=== PATIENT | male | born 1960 | race Caucasian/White ===

== ENCOUNTER 2019-06-15 08:30 | Outpatient (AMBR) | payer MEDICARE, MEDICAID, SELFPAY ==
--- NOTE | 2019-06-08 09:20 | PT.OIERPT ---
PT OP Initial Eval Patient Information Visit Reasons: left knee pain Medical Diagnosis: Z47.1; Z96.652 Treatment Dx #1: Left Knee Weakness Treatment Dx #2: Left Knee Mobility Deficits Start of Care: 06/08/19 Date of Onset: 05/14/19 Initial Assessment Subjective Pt is a 58 y/o male s/p left knee TKA revision 05/14/19. Pt still has knee pain (5/10) with certain activities. Pt will like to be able to garden, walk longer, stand longer, deep squat, and performing recreational activities with minimal limitation. Pt has been some exercises at home after the surgery. Objective Left Knee AROM: -8 deg to 115 deg Left Knee MMTs Quads: 3-/5 Hs: 3-/5 Left Hip MMTs Glute Med: 3/5 Glute Max: 3/5 SLS: unable due to pain and balance deficits Assessment Pt demonstrate left knee mobility and strength deficits s/p revision TKA leading to decline function. 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 Goals 1) Increase left knee flexion AROM to 120 deg in 8 wks to be able to perform deep squat 2) Increase left knee MMTs to 4/5 in 8 wks to be able to perform stairs and steps 3) Increase left hip MMTs to 4-/5 in 8 wks to be able to perform ambulation with AD more than 1 hr 4) Decrease knee pain to 2/10 in 8 wks to be able to garden 5) Indep with HEP Treatment Plan 1) Manual Therapy 2) Therapeutic Activities 3) Therapeutic Exercises 4) Modalities (ice, heat) 5) Balance Training 6) Gait Training Frequency and Duration 2 x wk for 8 wks Certification Dates: 06/08/19 to 09/06/19 Office Procedures PT Procedures PT Date of Service: 06/08/19 OP PT Eval Mod Complex 30 minutes: Yes
--- NOTE | 2019-06-13 12:41 | PT.ODAYNRPT ---
PT Outpatient Daily Note Date of Service: June 13, 2019 OP Daily Note Visit Reasons: left knee pain Outpatient Physical Therapy Treatment Date: 06/13/19 Subjective: Pt's knee feels good. No pain just stiff this AM Objective: Please see flow chart for list of ther ex performed Assessment: increase knee flexion after SB heelslide; no pain throughout PT session Plan: Continue with PT Length of Time (minutes) of Treatment: 30 Minutes Office Procedures PT Procedures PT Date of Service: 06/13/19 Therapeutic Exercise 30 minutes: Yes PT Procedures PT Date of Service: 06/08/19 OP PT Eval Mod Complex 30 minutes: Yes
--- NOTE | 2019-06-15 10:13 | PT.ODAYNRPT ---
PT Outpatient Daily Note Date of Service: June 15, 2019 OP Daily Note Visit Reasons: left knee pain Outpatient Physical Therapy Treatment Date: 06/15/19 Subjective: Pt's knee really sore after last treatment session. Pt mention that he continues his HEP at home. Objective: Please see flow chart for list of ther ex performed Assessment: continue to improve with knee flexion AROM; difficulty with side step and monster walk since was perform at end of session and Pt is fatigue. Able to perform recumbent bike with complete full [place] Plan: Continue with PT Length of Time (minutes) of Treatment: 30 Minutes Office Procedures PT Procedures PT Date of Service: 06/13/19 Therapeutic Exercise 30 minutes: Yes PT Procedures PT Date of Service: 06/08/19 OP PT Eval Mod Complex 30 minutes: Yes PT Procedures PT Date of Service: 06/15/19 Therapeutic Exercise 30 minutes: Yes
== END 2019-06-16 23:59 | disposition home or self-care (01) ==
PROVIDERS: PCP Nurse Practitioner Family; Referring Provider Nurse Practitioner Family; Visit Provider Orthopaedic Surgery
DX: Z47.1 Aftercare following joint replacement surgery (principal); Z96.652 Presence of left artificial knee joint; M25.562 Pain in left knee; R53.1 Weakness
CPT/HCPCS: 97110; 97162

== ENCOUNTER 2019-07-03 08:00 | Outpatient (AMBR) | payer MEDICARE, MEDICAID, SELFPAY ==
--- NOTE | 2019-06-18 09:47 | PTNOTE_ITS ---
PT Outpatient Daily Note Date of Service: June 18, 2019 OP Daily Note Visit Reasons: left knee pain Outpatient Physical Therapy Treatment Date: 06/18/19 Subjective: pt he feels his knee getting better after this surgery. has not been using ice on the L knee. Objective: see flow sheet. Assessment: pt demonstrates good ROM of knee flexion during his heel slides exercise with more than 90 degrees. he continues to ambulate with antalgic gait pattern. good weight shifting with equal WB as he lifts one at a time. no comp laints during treatment as he is motivated to get strong. educated pt about ice pack. he agreed to use ice pack post ther ex. observed a lot swelling so placed ice pack on it post ther ex. Plan: continue POC per PT. Length of Time (minutes) of Treatment: 30 Minutes PARTS PERSON Service Modifier Method I: Divide the number of min of care provided by the PARTS PERSON/RICHMOND by the total min of care provided then multiply by 100. If greater than 11 percent modifier is required. Method II: Divide the total time of care provided to patient by 10 (round to the nearest whole number) and add 1 min. to set the minimum time requirement. If treatment total was 60 min., then 10% of 6 min Did PARTS PERSON provide more than 10% of the care?: Yes PT CQ modifier applied: CQ Modifier applied Office Procedures PT Procedures PT Date of Service: 06/18/19 Therapeutic Exercise 30 minutes: Yes
--- NOTE | 2019-06-25 11:36 | PT.ODAYNRPT ---
PT Outpatient Daily Note Date of Service: June 25, 2019 OP Daily Note Visit Reasons: left knee pain Outpatient Physical Therapy Treatment Date: 06/25/19 Subjective: Pt's knee is better. Pt mention that he is very sore from the weekend. Pt was finishing up on some projects and yardwork. Objective: Please see flow chart for list of ther ex performed Assessment: improving with knee flexion AROM; guarded with knee flexion stretch but was able to tolerate. Post ice help decrease soreness and pain after therapy session Plan: Continue with PT Length of Time (minutes) of Treatment: 30 Minutes Office Procedures PT Procedures PT Date of Service: 06/18/19 Therapeutic Exercise 30 minutes: Yes PT Procedures PT Date of Service: 06/25/19 Therapeutic Exercise 30 minutes: Yes
--- NOTE | 2019-06-29 09:17 | PT.ODAYNRPT ---
PT Outpatient Daily Note Date of Service: June 29, 2019 OP Daily Note Visit Reasons: left knee pain Outpatient Physical Therapy Treatment Date: 06/29/19 Subjective: Pt mention that his knee feels good. A little sore from working in his garage. Pt will see surgeon on Tuesday Objective: Left Knee Flexion AROM: 123 deg Assessment: Pt's knee flexion AROM WFL and will no longer need manual stretches. Added more resistance and strengthening exercises today with good tolerance Plan: Continue with PT Length of Time (minutes) of Treatment: 30 Minutes Office Procedures PT Procedures PT Date of Service: 06/18/19 Therapeutic Exercise 30 minutes: Yes PT Procedures PT Date of Service: 06/25/19 Therapeutic Exercise 30 minutes: Yes PT Procedures PT Date of Service: 06/29/19 Therapeutic Exercise 30 minutes: Yes
--- NOTE | 2019-07-03 09:05 | PT.ODAYNRPT ---
PT Outpatient Daily Note Date of Service: July 03, 2019 OP Daily Note Visit Reasons: left knee pain Outpatient Physical Therapy Treatment Date: 07/03/19 Subjective: Pt saw MD and satisfy with knee ROM. Pt's knee feels stiff this morning but it's related more to what he's doing in his garage Objective: Please see flow chart for list of ther ex performed Assessment: tolerate exercises with minimal pain Plan: Continue with PT Length of Time (minutes) of Treatment: 30 Minutes Office Procedures PT Procedures PT Date of Service: 07/03/19 Therapeutic Exercise 30 minutes: Yes PT Procedures PT Date of Service: 06/18/19 Therapeutic Exercise 30 minutes: Yes PT Procedures PT Date of Service: 06/25/19 Therapeutic Exercise 30 minutes: Yes PT Procedures PT Date of Service: 06/29/19 Therapeutic Exercise 30 minutes: Yes
== END 2019-07-17 23:59 | disposition home or self-care (01) ==
PROVIDERS: PCP Nurse Practitioner Family; Referring Provider Nurse Practitioner Family; Visit Provider Orthopaedic Surgery
DX: Z47.1 Aftercare following joint replacement surgery (principal); Z96.652 Presence of left artificial knee joint; M25.562 Pain in left knee; R53.1 Weakness; R26.2 Difficulty in walking, not elsewhere classified
CPT/HCPCS: 97110

== ENCOUNTER 2024-05-12 12:41 | Inpatient (IN) | payer MEDICARE, MEDICAID, SELFPAY ==
[2024-05-12 12:54] VITALS: BP 112/96; PULSE 56; RESP 16; TEMP 36.6; O2SAT 98
[2024-05-12 12:57] VITALS: BMI 29.8
--- NOTE | 2024-05-12 13:06 | PC.NURSE ---
Addendum entered by Tanna Wolfe RN 05/12/24 13:36: cardboard splint in place upon arrival to er Original Note: Patient to er via ems s/p stepping into a hole, c/o right ankle pain, patient given fentanyl 100mcg en route and patient states his pain is tolerable and has decreased to 3/10 at this time, Dr. Ramires at bedside to evaluate patient.
--- NOTE | 2024-05-12 13:11 | EDNOTE_ITS ---
Lower Extremity Injury RME/HPI General Chief Complaint: Ankle/Foot Injury Stated Complaint: right ankle injury Time Seen by Provider: 05/12/24 13:09 Arrival date/time: 05/12/24 12:41 RME / HPI RME / HPI Narrative: DR. FRAZIER MAIN ED EVALUATION: Patient was on a field watching his granddaughter play soccer and evidently stepped into a hole or depression and rolled his right ankle with a deformity. EMS was called and he was transported to our facility for further evaluation. He was put in a cardboard splint with fair amount of comfort. Patient denies any other injury to his head neck chest abdomen pelvis. His left leg has no injury or problem. The distal tib-fib and ankle are painful and swollen. He remains neurovascularly intact. Related Data Home Medications ?Medication ?Instructions ?Recorded ?Confirmed lisinopril 20 mg tablet 20 mg PO DAILY 05/09/18 05/12/24 sertraline 50 mg tablet 50 mg PO QDAY 06/20/18 05/12/24 atenolol 50 mg tablet 50 mg PO QDAY 03/18/22 05/12/24 rifaximin 550 mg tablet (Xifaxan) 550 mg PO BID 05/12/24 05/12/24 Allergies Allergy/AdvReac Type Severity Reaction Status Date / Time No Known Allergies Allergy Verified 05/12/24 17:14 Review of Systems Review of Systems Systems Reviewed: All systems reviewed, normal except as documented Narrative Review of Systems: GEN: No fever, no chills, no weight loss EYES: No discharge, no visual changes, no pain HEENT: No ear pain, no congestion, no sore throat PULM: No shortness of breath, no cough, no congestion CV: No chest pain, no dyspnea on exertion, no palpitations GI: No nausea, no vomiting, no diarrhea, no pain, no constipation : No frequency, no urgency and no dysuria MUSC/SKEL: + right ankle pain with a deformity (see HPI), no back pain SKIN: No rash PSYCH: No hallucinations, no depression HEME/LYMPH: No easy bleeding or bruising tendencies NEURO: No weakness, no headache Past Medical History Past Medical History CARDIAC: Positive Cardiac Disorders, Hypercholesterolemia and Hypertension GASTROINTESTINAL: Positive Gastrointestinal Disorders, Gall Bladder Disease and Ulcer MUSCULOSKELETAL: Positive Musculoskeletal Disorders and Arthritis ENT: Positive Cataracts PSYCHO/SOCIAL: Positive Depression and Anxiety OTHER HISTORY: Positive Chicken Pox, Measles and Mumps Family History FAMILY HISTORY: Positive Family Cardiac Disorders, Family Cancer and Family Surgery Surgical History SURGICAL: Positive Eye Surgery, Abdominal Surgery, Joint Replacement, Arthroscopy and Vasectomy Social History SMOKING STATUS: Current every day smoker SECOND HAND EXPOSURE: Yes SUBSTANCE USE: does not use ALCOHOL: Never ED Exam Narrative Physical exam: Physical Exam: General: The vital signs were reviewed. The patient is non-toxic, in no apparent distress and appears healthy with a patent airway, no respiratory distress and has no apparent circulatory problems. Head & Scalp: Normocephalic, atraumatic. Face: Appears normal and is without lesions, deformity. Ears: Left external pinna appears normal. Right external pinna appears normal. Eyes: The sclera is anicteric. No obvious photophobia. The Left and Right Orbit/Lid/Conjunctiva appears normal without swelling, discoloration or injection. Nose: The nose is without deformity, discharge or tenderness; Throat: Appears normal. The mucous membranes are pink and moist without exudates, redness or mass seen. The tongue appears normal. Neck: The neck is supple and no apparent mass or adenopathy. Chest: The chest wall is normal in size and symmetry and has no chest wall tenderness or crepitus. The patient displays normal ventilator effort without retractions, accessory muscle use and has adequate air movement bilaterally with no wheezes and no rales. Cardiovascular: Regular rate and rhythm; No murmurs, rubs, or gallops; Gastrointestinal: The abdomen appears normal. No obvious hernias or mass. The abdomen is soft and benign, non-distended, with no pain, no guarding and no rebound tenderness. Bowel sounds are present and normal sounding. No CVA tenderness. Genitourinary: Back/Spine: Nontender Extremities/Musculoskeletal/lymphatic: The right distal tib-fib has tenderness on palpation but no obvious step-off is felt in the tibia. When he approached medially although I in the ankle joint and mortise itself there appears to be much more pain with some swelling no gross deformity is seen at this time. He is neurovascularly intact. The foot has no pain or abnormality and he moves his toes without difficulty. The bilateral upper and left lower extremities are warm. There is no evidence of arterial insufficiency. There is no evidence of venous insufficiency/edema. The patient spontaneously moves bilateral upper and lower extremities with no pain and no limitation of movement. There is no apparent, injury or trauma. Skin: The skin is warm, dry and intact. No rashes. No petechia. No purpura. No a bnormal bruising. The color is appropriate with no cyanosis. Mental status/Psychiatric: Mental status is appropriate for age. The patient has no apparent delusions, visual hallucinations, no apparent audible hallucinations. The patient has no apparent suicidal thoughts/ideation and no apparent homicidal thoughts/ideation. Neurological: The patient is awake, alert, interactive, cordial, cooperative and is oriented to name and situation. The patient follows commands and answers historical question with no impairment. There is no visual disturbance apparent. The pupils are equal and reactive bilaterally with normal eye movements and no diplopia The bilateral upper and lower extremities have normal strength, normal range of motion and normal functioning. The gait, station and balance appear to be baseline with no acute change Course Quality Measures none Orders Category Date Time Status EKG (ED ONLY) *Do not use* NOW Care 05/12/24 16:03 Active Miscellaneous Nursing Order NOW Care 05/12/24 18:10 Active NPO NOW Care 05/12/24 16:03 Active Splint / Immobilizer STAT Care 05/12/24 15:40 Active Diet NPO (NOW) Diet 05/12/24 16:[address] ankle RT wo con Stat Exams 05/12/24 16:01 Completed EKG (ED Only) Stat Exams 05/12/24 16:03 Draft XR ankle comp RT min 3V Stat Exams 05/12/24 13:09 Completed XR chest 1V portable Stat Exams 05/12/24 16:03 Completed XR tibia fibula RT 2V Stat Exams 05/12/24 13:09 Completed CBC Stat Lab 05/12/24 16:47 Completed Comprehensive Metabolic Panel Stat Lab 05/12/24 16:47 Completed PT [Prothrombin Time with INR] Stat Lab 05/12/24 16:47 Completed PTT [Partial Thromboplastin Time] Stat Lab 05/12/24 16:47 Completed Urinalysis Stat Lab 05/12/24 16:03 Ordered Morphine Inj Med 05/12/24 14:41 Discontinued 5 mg IVP X1 ONE Ondansetron Inj [Zofran Inj] Med 05/12/24 14:41 Discontinued 4 mg IV X1 ONE Sodium Chloride 0.9% 1000 ml [Ns] 1,000 ml Med 05/12/24 16:03 Active IV 150 mls/hr Vital Signs Vital signs: Vital Signs Temperature 97.9 F 05/12/24 12:54 Pulse Rate 56 L 05/12/24 12:54 Respiratory Rate 16 05/12/24 12:54 Blood Pressure 112/96 H 05/12/24 12:54 Pulse Oximetry (%) 98 05/12/24 12:54 Oxygen Delivery Method Room Air 05/12/24 12:54 Procedures -ED Smoking Cessation Time Spent Discussing Smoking Cessation w/Patient (min): 3 Patient Acknowledges Need for Cessation: Yes Additional Comments: The patient was counseled as to the multiple risks to their health from continued use of tobacco products. It was explained that continuing to smoke may lead to multiple short and terminal gauger negative health consequences, including but not limited to mouth/esophageal/lung cancer, COPD, and heart disease. The patient states they understand these risks, and also understand the options and resources available to them to help them stop smoking. Nicotine replacement therapy, local hotlines, and local resources were discussed as viable options for helping them stop their tobacco use. The total time spent counseling the patient regarding tobacco cessation was 3 minutes. Extremity Injury, Lower MDM Narrative MDM Narrative:: Patient 63-year-old who appears to have rolled his right ankle with some injury and were pending x-rays at this time. The patient is neurovascularly intact. Should be noted paramedics gave the patient to 100 of fentanyl and route and he is comfortable on arrival. X-rays were done soon after arrival which revealed obvious fracture of the distal metaphyseal shaft of the tibia and the proximal fibular shaft has a nondisplaced fracture also. Ankle mortise appears to be fairly well aligned as the malleoli appear to be intact. The foot itself has no obvious pathology or injury clinically. Dr. abebe the orthopedic surgeon on-call was contacted he reviewed the x- rays with me and requested a CT of the ankle but stated that he would be consulting and would have the hospital admit preop labs were then ordered and came back in a delayed fashion as the department was quite busy and revealed the following white count 9.5 hemoglobin 15.1 platelet count is 134. PT was 12.8 INR 1.2 sodium 134 potassium 4.3 chloride 101 CO2 21.8 note the BUN is elevated 29 from baseline of normal creatinine is elevated at 1.9 baseline of normal. Etiology of this presumably ABILIO does liver transaminases are elevated along with a total bilirubin of 4.2.> Should be noted this patient has old records that reveal alcohol issues and the patient minimized that when I asked him the question but I think he is drinking more than he is admitting to The hospitalist were contacted early on informed that this patient need to be admitted and then have evaluated this patient and are working the patient up for preop clearance and obviously there is a few extra findings that were not known upfront. IShaunna, am scribing for and in the presence of Dr. Frazier. Patient data External records reviewed:: [facility] previous records (Reviewed last ED visit dated 03/23/22, discharged with the following: Chest pain) and EMS form Clinical information provided by:: patient and EMS Social determinants that could affect healthcare access:: other (specify) (current tobacco smoker) Patient has the following chronic illnesses:: Hypertension and hypercholesterolemia How is presenting disease/condition affected by chronic disease/condition?: uneffected by Evaluation data The following diagnostics were reviewed and interpreted by me:: radiology exam(s) Lab and/or radiology exams considered but not ordered:: none Interpretation Summary: See above under MDM narrative. RADIOLOGY Procedure(s): XR tibia fibula RT 2V Accession Number(s): [id number] cc: Raina Serna MD; Dinh Frazier MD; Kj Garcia MD~ Examination: Tibia-Fibula, right , 2 views Technique: Tibia-fibula AP lateral 2 views Date and time of exam: May 12, 2024 1333 hrs. Indications: Injury to the right lower leg today, lower leg pain. Findings: Acute fractures distal tibial shaft, on the AP view 7 mm offset of the main fracture fragments No ankle dislocation Acute fractures proximal fibular shaft without significant displacement Impression: Acute fractures distal tibial shaft Acute fractures proximal fibular shaft without significant displacement Dictated By: Kj Garcia MD Procedure(s): XR ankle comp RT min 3V Accession Number(s): [id number] cc: Raina Serna MD; Dinh Frazier MD; Kj Garcia MD~ Examination: Right ankle 3 views Technique one AP lateral right ankle 3 views Exam date and time: May 12, 2024 1334 hrs. Indications: Injury to the ankle today, ankle pain Findings: Comminuted fractures distal tibial shaft, on the AP view 7 mm offset at the main fracture site No ankle dislocation Impression: Acute comminuted fractures distal tibial shaft Dictated By: Kj Garcia MD Medications / Prescriptions Medications or Prescriptions considered but not ordered:: none Medication administrations:: Medication Administration History Acetaminophen (Acetaminophen 325 Mg Tablet) 650 mg PO Q6H PRN PRN Reason: PAIN SCALE 1-3 (mild Stop: 06/11/24 18:24 Hydrocodone Bitart/Acetaminophen (Hydrocodone/Apap 5/325 Tablet) 1 tab PO Q4HR PRN PRN Reason: PAIN SCALE 4-6 (Moderate Stop: 05/17/24 18:24 Folic Acid (Folic Acid 1 Mg Tablet) 1 mg PO BID [facility] Stop: 05/17/24 20:59 Hydromorphone HCl (Hydromorphone Inj 2 Mg/Ml Vial) 0.5 mg IVP Q4H PRN PRN Reason: Pain 7-10 Stop: 05/17/24 18:24 Sodium Chloride (Ns) 1,000 mls @ 150 mls/hr IV .Q6H40M ONE Stop: 05/12/24 22:42 Last Admin: 05/12/24 17:06 Dose: 150 mls/hr Documented By: DANIA Lorazepam (Lorazepam 0.5 Mg Tablet) 0.5 mg PO Q4HR PRN PRN Reason: CIWA Score 2-6 Stop: 05/17/24 18:29 Lorazepam (Lorazepam 2 Mg/Ml Vial) 1 mg IV Q2HR PRN PRN Reason: CIWA SCORE 7-14 Stop: 05/17/24 18:29 Lorazepam (Lorazepam 2 Mg/Ml Vial) 1 mg IV X1 PRN PRN Reason: Breakthrough Agitation Rifaximin (Rifaximin 550 Mg Tablet) 550 mg PO BID [facility] Stop: 05/19/24 20:59 Sertraline HCl (Sertraline Hcl 25 Mg Tablet) 50 mg PO QDAY [facility] Stop: 06/12/24 08:59 Thiamine HCl (Thiamine 100 Mg Tablet) 100 mg PO BID [facility] Stop: 05/17/24 20:59 Discontinued Medications Morphine Sulfate (Morphine Sulf Inj 10 Mg/Ml Vial) 5 mg IVP X1 ONE Stop: 05/12/24 14:42 Last Admin: 05/12/24 14:54 Dose: 5 mg Documented By: DANIA Ondansetron HCl (Ondansetron Inj 2 Mg/Ml Inj 2 Ml) 4 mg IV X1 ONE; Protocol Stop: 05/12/24 14:42 Last Admin: 05/12/24 14:53 Dose: 4 mg Documented By: DANIA see above if any Consultations Consultation(s) initiated? (list below): Yes Consultation #1 (Physician, Specialty, Details): Discussed test HPI, PMHx, lab, radiology results and/or management with Dr. Segal. Will consult an admission to the hospitalist. Wants to do the surgery tomorrow, patient will be abmitted. Time: 16:00 Consultation #2 (Physician, Specialty, Details): Discussed test HPI, PMHx, lab, radiology results and/or management with hospitalist. Will admit for further evaluation and management. Accepts patient for admission. Time: 16:06 Diagnosis Extremity Injury, Lower Differential Diagnosis: ankle sprain and strain, fracture of toe and ankle fracture Most likely diagnosis given after review of the tests above:: As noted below. Admission Indicated Admission indicated?: indicated Admission Request Was there a request for admission?: Yes Admission Attestation Admission request attestation: Discussed case with [] from Hospitalist service regarding admission. Discussed patients ED course, exam findings, labs, and radiology results. The Hospitalist [agrees,declines] to accept the patient for admission. Disposition Plan Disposition Plan: Admit Discharge Plan Plan Patient Disposition: Admit Acute Care w/in Hospital Problem List Clinical Impression: Comminuted fracture of shaft of tibia, Alcohol abuse, Closed fibular fracture, Accidental fall, Elevated transaminase level, Acute prerenal azotemia
[2024-05-12 14:50] VITALS: BP 113/69; PULSE 56; RESP 18; TEMP 36.4; O2SAT 100
[2024-05-12] MEDS: ONDANSETRON INJ 2 MG/ML INJ 2 ML 4 MG IV (14:53)
[2024-05-12] MEDS: MORPHINE SULF INJ 10 MG/ML VIAL 5 MG IVP (14:54)
--- NOTE | 2024-05-12 16:01 | XR_ITS ---
Examination: CT right ankle, without contrast. 2-D sagittal reconstructions. 2-D coronal reconstructions. 3-D reconstructions. Date and time of exam:May 12, 2024 at 1632 hrs. Indications: Injury to the lower leg today, acute fractures proximal fibular shaft and distal tibial shaft on plain films today CTDI: vol (mGy):4.69 DLP: (mGycm):1167 Technique: Multiple 1.25 mm axial sections of the right ankle have been obtained. 2-D sagittal and coronal reconstructions have been obtained. 3-D reconstructions have been obtained. Low dose protocols were performed. One or more of the following dose reduction techniques were used; automated exposure control, adjustment of the mA and/or KV according to patient size, use of iterative reconstruction technique. Findings: Fractures through the distal tibial shaft, on the coronal views 4 mm offset at the main fracture sites Sagittal image 57 demonstrates a nondisplaced posterior malleolar fracture Medial malleolus and the distal fibula appear intact No ankle dislocation Talus calcaneous cuboid cuneiforms and navicular appear intact Metatarsals and digits appear intact Impression: Acute fractures through the distal tibial shaft Nondisplaced posterior malleolar fracture No ankle dislocation
--- NOTE | 2024-05-12 16:03 | XR_ITS ---
Examination: AP chest single view Technique one AP upright portable chest single view Exam date and time: May 12, 2024 at 1608 hrs. Comparison April 01, 2018 Indications: Dyspnea today Findings: Mild prominence left ventricle Mild prominence pulmonary vasculature. No lobar pneumonia or pulmonary edema The osseous structures are intact Impression: Mild prominence of ventricle Mild prominence pulmonary vasculature No lobar pneumonia
--- NOTE | 2024-05-12 16:03 | EKG_ITS ---
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
[2024-05-12 16:58] LABS: Basophils % (Auto) 0 % (0-2.5); Eosinophils % (Auto) 0 % (0-10); Hemoglobin 15.1 g/dL (13.5-16.0); Immature Granulocytes % (Auto) 1 % (0-0); Immature Granulocytes Auto 0.08 Thou/mm3 (0.00-0.00); Lymphocytes % (Auto) 11 % (10-50); Mean Corpuscular HGB Conc 34.3 g/dl (31.0-37.0); Mean Corpuscular Volume 96 fL (80-100); Monocytes # (Auto) 0.5 Thou/mm3 (0.0-0.8); Monocytes % (Auto) 6 % (0-12); Neutrophils # (Auto) 7.8 Thou/mm3 (1.8-7.7); Neutrophils % (Auto) 82 % (37-80); Nucleated Red Blood Cell % 0 /100 WBC (0); Platelet Count 134 Thou/mm3 (140-440); RDW Standard Deviation 45.6 fL (35.1-43.9); Red Blood Count 4.58 Miln/mm3 (4.50-5.90); White Blood Count 9.5 Thou/mm3 (3.8-10.6)
--- NOTE | 2024-05-12 17:05 | PC.NURSE ---
Dr. Mcmullen at bedside evaluating patient and speaking with patient and family regarding plan of care.
[2024-05-12] MEDS: SODIUM CHLORIDE 0.9% 1000 ML 1,000 ML 150 ML IV (17:06)
[2024-05-12 17:09] VITALS: BP 93/61; PULSE 62; RESP 16; TEMP 36.3; O2SAT 94
[2024-05-12 17:13] LABS: INR 1.2 (0.9-1.3); Partial Thromboplastin Time 30.2 Seconds (22.0-36.0); Prothrombin Time 12.8 Seconds (9.0-12.2)
[2024-05-12 17:27] LABS: Alanine Aminotransferase 1265 U/L (10-49); Albumin, Serum 4.6 gm/dL (3.4-4.8); Albumin/Globulin Ratio 1.4 (1.2-2.2); Alkaline Phosphatase 197 U/L (46-116); Anion Gap 11 (7-16); Aspartate Amino Transferase 581 U/L (0-34); BUN/Creatinine Ratio 15 Ratio (12-20); Bilirubin,Total 4.2 mg/dL (0.3-1.2); Blood Urea Nitrogen 29 mg/dL (9-23); Calcium 10.2 mg/dL (8.3-10.6); Calcium (Corrected) 10.2 mg/dL (8.5-10.1); Carbon Dioxide 21.8 mMol/L (20.0-31.0); Chloride 101 mMol/L (98-107); Creatinine (Component) 1.9 mg/dL (0.6-1.3); Estimated Creatinine Clearance 47.4 mL/min (>60); Globulin 3.2 gm/dL (2.3-3.5); Glucose 108 mg/dL (74-106); Osmolality,Calculated 275 (275-295); Potassium 4.3 mMol/L (3.4-5.1); Sodium 134 mMol/L (136-145); Total Protein 7.8 gm/dL (5.7-8.2); eGFR 39 See Note
--- NOTE | 2024-05-12 18:54 | XR_ITS ---
Examination: Abdomen sonogram, Limited Date and time of exam: May 12, 2024 1925 hrs. Indications: Patient fell today with injury to the abdomen, abdominal pain, elevated liver enzymes Technique: Real-time woodward scale transabdominal sonographic images of the upper abdomen obtained. Findings: Absent gallbladder Common bile duct 0.7 cm no stones Pancreatic head 3.2 cm Liver 16.4 cm fatty infiltration irregular contour no focal liver lesions Normal hepatopedal portal venous flow Patent IVC Impression: Absent gallbladder Common bile duct 0.7 cm no stones noted Mild hepatomegaly fatty infiltration, primary hepatocellular disease pattern no focal liver lesions
--- NOTE | 2024-05-12 19:40 | PD.RESHP ---
Documentation for date of: 05/12/24 HPI History of Present Illness History of present illness: The patient is a 63-year-old male with significant past medical history of hypertension, alcoholic hepatitis and anxiety presented to ED on 05/12/2024 with chief complaint of right ankle pain after a ground-level fall. He reported that he was standing, and felt like his ground was moving, and fell down. He tried searching for any holes in the ground but there was none. He denied any lightheadedness, dizziness, SOB, chest pain, LOC, any incontinence during the episode. In the ED his vitals were fairly stable, with blood pressure of 112/96, pulse 56 and saturating 98% on room air. CBC WNL, PT 12.8, BUN 29, creatinine 1.9, total bilirubin 4.2, AST 581 and ALT 1265 with ALP 197. Rt ankle xray Acute comminuted fractures distal tibial shaft, Rt tibia/fibula x ray Acute fractures distal tibial shaft, Acute fractures proximal fibular shaft without significant displacement. CT ankle Acute fractures through the distal tibial shaft, Nondisplaced posterior malleolar fracture, No ankle dislocation. US GB Absent gallbladder, Common bile duct 0.7 cm no stones noted, Mild hepatomegaly fatty infiltration, primary hepatocellular disease pattern no focal liver lesions. PMH: As mentioned above SHX: Cholecystectomy, left knee replacement Social Hx: Smoking 1/2 pack per day for 40 years, 2-3 beers/day but denies any illicit drug use. Medications: Atenolol, lisinopril, rifaximin and sertraline Review of Systems Review of Systems Systems Reviewed: All systems reviewed, normal except as documented Exam Vital Signs Temp Pulse Resp BP Pulse Ox O2 Del Method O2 Flow Rate 97.4 F 62 16 93/61 94 L Nasal Cannula 2 05/12/24 17:09 05/12/24 17:09 05/12/24 17:09 05/12/24 17:09 05/12/24 17:09 05/12/24 17:09 05/12/24 17:09 Narrative Exam General: Elderly gentleman, no acute distress, Alert and Oriented x 3 HEENT: Moist mucous membranes, oropharynx clear Neck: Supple, No masses, No JVD CVS: S1S2 Regular rate and rhythm, No murmurs, rubs or gallops Lungs: Clear to auscultation with no accessory use, no wheeze no rhonchi Abd: Soft, NT/ND, +BS, no organomegaly Ext: Rt ankle swollen and tender. peripheral arteries palpable, Lt knee with surgical scar Skin: No rash Psych: Appropriate mood and affect Results: Labs 05/14/24 05:27 05/14/24 05:27 Labs: Short CBC 05/12/24 Range/Units 16:47 WBC 9.5 (3.8-10.6) Thou/mm3 Hgb 15.1 (13.5-16.0) g/dL Hct 44.0 (41.0-53.0) % Plt Count 134 L (140-440) Thou/mm3 BMP 05/12/24 16:47 Sodium 134 L Potassium 4.3 Chloride 101 Carbon Dioxide 21.8 BUN 29 H Creatinine 1.9 H Glucose 108 H Calcium 10.2 Liver Function 05/12/24 Range/Units 16:47 Total Bilirubin 4.2 H (0.3-1.2) mg/dL AST 581 H* (0-34) U/L ALT 1265 H* (10-49) U/L Alkaline Phosphatase 197 H (46-116) U/L Albumin 4.6 (3.4-4.8) gm/dL Quality Measures Quality Measures none Advance care planning discussed with:: patient and spouse Medications Home Medications and Allergies Home Medications ?Medication ?Instructions ?Recorded ?Confirmed ?Type lisinopril 20 mg tablet 20 mg PO DAILY 05/09/18 05/12/24 History sertraline 50 mg tablet 50 mg PO QDAY 06/20/18 05/12/24 History atenolol 50 mg tablet 50 mg PO QDAY 03/18/22 05/12/24 History rifaximin 550 mg tablet (Xifaxan) 550 mg PO BID 05/12/24 05/12/24 History Allergies Allergy/AdvReac Type Severity Reaction Status Date / Time No Known Allergies Allergy Verified 05/12/24 17:14 Visit Medications Acetaminophen (Acetaminophen 325 Mg Tablet) 650 mg PO Q6H PRN PRN Reason: PAIN SCALE 1-3 (mild Stop: 06/11/24 18:24 Hydrocodone Bitart/Acetaminophen (Hydrocodone/Apap 5/325 Tablet) 1 tab PO Q4HR PRN PRN Reason: PAIN SCALE 4-6 (Moderate Stop: 05/17/24 18:24 Folic Acid (Folic Acid 1 Mg Tablet) 1 mg PO BID PURA Stop: 05/17/24 20:59 Hydromorphone HCl (Hydromorphone Inj 2 Mg/Ml Vial) 0.5 mg IVP Q4H PRN PRN Reason: Pain 7-10 Stop: 05/17/24 18:24 Sodium Chloride (Ns) 1,000 mls @ 150 mls/hr IV .Q6H40M ONE Stop: 05/12/24 22:42 Last Admin: 05/12/24 17:06 Dose: 150 mls/hr Lorazepam (Lorazepam 0.5 Mg Tablet) 0.5 mg PO Q4HR PRN PRN Reason: CIWA Score 2-6 Stop: 05/17/24 18:29 Lorazepam (Lorazepam 2 Mg/Ml Vial) 1 mg IV Q2HR PRN PRN Reason: CIWA SCORE 7-14 Stop: 05/17/24 18:29 Lorazepam (Lorazepam 2 Mg/Ml Vial) 1 mg IV X1 PRN PRN Reason: Breakthrough Agitation Rifaximin (Rifaximin 550 Mg Tablet) 550 mg PO BID PURA Stop: 05/19/24 20:59 Sertraline HCl (Sertraline Hcl 25 Mg Tablet) 50 mg PO QDAY PURA Stop: 06/12/24 08:59 Thiamine HCl (Thiamine 100 Mg Tablet) 100 mg PO BID PURA Stop: 05/17/24 20:59 Discontinued Medications Morphine Sulfate (Morphine Sulf Inj 10 Mg/Ml Vial) 5 mg IVP X1 ONE Stop: 05/12/24 14:42 Last Admin: 05/12/24 14:54 Dose: 5 mg Ondansetron HCl (Ondansetron Inj 2 Mg/Ml Inj 2 Ml) 4 mg IV X1 ONE; Protocol Stop: 05/12/24 14:42 Last Admin: 05/12/24 14:53 Dose: 4 mg Assessment & Plan Plan The patient is a 63-year-old male with significant past medical history of hypertension, alcoholic hepatitis and anxiety presented to ED on 05/12/2024 with chief complaint of right ankle pain after a ground-level fall. He reported that he was standing, and felt like his ground was moving, and fell down and was admitted for management of Lt acute fracture of distal tibial shaft and posterior malleolar fracture. #Acute Fracture of distal tibial shaft #Non displaced Posterior malleolar fracture #Ground level fall Pt. complaint of right ankle pain after a ground-level fall. He reported that he was standing, and felt like his ground was moving, and fell down. He tried searching for any holes in the ground but there was none. He denied any lightheadedness, dizziness, SOB, chest pain, LOC, any incontinence during the episode. Rt ankle xray Acute comminuted fractures distal tibial shaft, Rt tibia/fibula x ray Acute fractures distal tibial shaft, Acute fractures proximal fibular shaft without significant displacement. CT ankle Acute fractures through the distal tibial shaft, Nondisplaced posterior malleolar fracture, No ankle dislocation -Pain management -Dr. Parks on board, appreciate reccs -NPO after midnight -Hold anticoagulations #Alcohol abuse disorder #Alcoholic hepatitis Drinks 2-3 beers/day, has previous labs with elevated liver enzymes and bilirubin total bilirubin 4.2, AST 581 and ALT 1265 with ALP 197 during presentation US GB Absent gallbladder, Common bile duct 0.7 cm no stones noted, Mild hepatomegaly fatty infiltration, primary hepatocellular disease pattern no focal liver lesions. -On CIWA protocol -Pending Hepatic panel -Monitor closely -Rifaximine 550mg BID -Dr. Mares consulted, appreciate reccs #Hypercalcemia #ABILIO Likely prerenal DDx: Intrarenal vs postrenal Cr 1.9, previous on 2021 was 1.1 -Maintainance IV NS 150cc/h for 1 L -Monitor daily renal panel -Avoid nephrotoxins #Hypoosmolar hypovolemic hyponatremia -On IV NS 150cc/Hr -Monitor renal panel #Hypertension Currently BP stable -Hold off on home antihypertensive for now, resume as needed #Anxiety -Started home sertraline 50mg daily Health maintenance: Dispo: Admitted for management of Lt acute fracture of distal tibial shaft and posterior malleolar fracture DVT prophylaxis: On Lt LL SCD's Diet: Cardiac diet, NPO after midnight CODE: Full code The plan was discussed with my attending MD Valeriy Ann MD PGY2 Attending Provider Attestation/Addendum I attest that I was physically present for the evaluation, physical examination, lab and imaging review of the patient with the residents. I discussed the case with the residents and agree with the findings and plans of care as documented above. Carri Nair MD
[2024-05-12] MEDS: HYDROmorphone INJ 2 MG/ML VIAL 0.5 MG IVP (20:00)
--- NOTE | 2024-05-12 20:07 | PD.EDADDENDU ---
Emergency Room Addendum Addendum Narrative: Patient had a long leg 3 sided posterior splint placed on his right leg administered by our 1 and only Vernon Mota and patient was much more comfortable and neurovascularly intact.
[2024-05-12] MEDS: THIAMINE 100 MG TABLET PO (20:23)
[2024-05-12] MEDS: FOLIC ACID 1 MG TABLET PO (20:24)
[2024-05-12] MEDS: rifaximin 550 MG TABLET PO (20:24)
[2024-05-12 20:58] VITALS: PULSE 62; RESP 18; O2SAT 93
--- NOTE | 2024-05-12 21:00 | PC.NURSE ---
Dr. Parks [facility] called to ask about labs. Ordered NPO after midnight, no antiplatellets or blood thinners. Surgery at 0900
--- NOTE | 2024-05-12 21:03 | PC.NURSE ---
Spoke to Dr Mcmullen and communicated BP of 97/68 while she was in ER unit. States she will place orders when she gets to her desk.
[2024-05-12 21:53] LABS: Alcohol, Blood Medical < 3.0 mg/dL (0-10.0)
--- NOTE | 2024-05-12 22:09 | PC.NURSE ---
Called admitting provider for 84/44 BP. They will make their way to ED
[2024-05-12] MEDS: RINGERS LACTATED 500 ML 500 ML 999 ML IV (22:23)
[2024-05-12 22:37] VITALS: BP 84/44; PULSE 60; RESP 20; O2SAT 92
[2024-05-12 23:02] VITALS: BP 91/61; PULSE 56; RESP 18; O2SAT 93
[2024-05-13] VITALS (15 sets, daily range): BP systolic 92–141; BP diastolic 55–97; PULSE 50–125; RESP 15–20; TEMP 35.7–37.1; O2SAT 92–98; BMI 29.8
[2024-05-13] MEDS: HYDROmorphone INJ 2 MG/ML VIAL 0.5 MG IVP ×3 (01:05→20:34)
[2024-05-13 01:20] LABS: Collection Type, Urine Catheter; Squamous Epithelial Cell,Urine 0 /hpf (0-5)
[2024-05-13 01:38] LABS: Bilirubin,Urine Negative (Negative); Blood,Urine Negative (Negative); Clarity,Urine Clear (Clear/Hazy); Color,Urine Yellow (Lt Yel-Yel); Glucose, Urine 3+ (Negative); Ketones,Urine Negative (Negative); Leukocyte Esterase,Urine Negative (Negative); Nitrite,Urine Negative (Negative); PH,Urine 5.5 (5.0-7.0); Protein,Urine Negative (Neg - Trace); RBC,Urine < 1 /hpf (0-3); Specific Gravity,Urine 1.011 (1.001-1.035); WBC,Urine 2 /hpf (0-5)
[2024-05-13 06:38] LABS: Basophils % (Auto) 1 % (0-2.5); Eosinophils # (Auto) 0.1 Thou/mm3 (0.0-0.5); Eosinophils % (Auto) 2 % (0-10); Hematocrit 41.5 % (41.0-53.0); Hemoglobin 13.9 g/dL (13.5-16.0); Immature Granulocytes % (Auto) 1 % (0-0); Immature Granulocytes Auto 0.06 Thou/mm3 (0.00-0.00); Lymphocytes # (Auto) 0.8 Thou/mm3 (1.0-4.8); Lymphocytes % (Auto) 15 % (10-50); Mean Corpuscular HGB Conc 33.5 g/dl (31.0-37.0); Mean Corpuscular Hemoglobin 32.9 pg (25.0-35.0); Mean Corpuscular Volume 98 fL (80-100); Monocytes # (Auto) 0.4 Thou/mm3 (0.0-0.8); Monocytes % (Auto) 8 % (0-12); Neutrophils # (Auto) 4.1 Thou/mm3 (1.8-7.7); Neutrophils % (Auto) 75 % (37-80); Nucleated Red Blood Cell % 0 /100 WBC (0); Platelet Count 99 Thou/mm3 (140-440); RDW Standard Deviation 46.7 fL (35.1-43.9); Red Blood Count 4.23 Miln/mm3 (4.50-5.90); White Blood Count 5.4 Thou/mm3 (3.8-10.6)
[2024-05-13 06:58] LABS: Glucose Estimated Average 103 mg/dL (80-131); Hemoglobin A1C 5.2 % Hgb (4.8-6.0)
[2024-05-13 07:41] LABS: Acetaminophen 2.7 mcg/mL (10.0-20.0); Albumin, Serum 4.3 gm/dL (3.4-4.8); Albumin/Globulin Ratio 1.5 (1.2-2.2); Alkaline Phosphatase 186 U/L (46-116); Anion Gap 6 (7-16); Aspartate Amino Transferase 510 U/L (0-34); BUN/Creatinine Ratio 15 Ratio (12-20); Bilirubin,Total 6.5 mg/dL (0.3-1.2); Blood Urea Nitrogen 26 mg/dL (9-23); Calcium 9.8 mg/dL (8.3-10.6); Calcium (Corrected) 9.8 mg/dL (8.5-10.1); Carbon Dioxide 23.9 mMol/L (20.0-31.0); Cardiac Risk Estimate 10.2 RATIO (4.0-6.7); Chloride 103 mMol/L (98-107); Cholesterol 143 mg/dL (132-200); Creatinine (Component) 1.7 mg/dL (0.6-1.3); Globulin 2.9 gm/dL (2.3-3.5); Glucose 105 mg/dL (74-106); HDL Cholesterol 14 mg/dL (40-60); LDL Cholesterol,Calculated 75 mg/dL (0-130); Osmolality,Calculated 271 (275-295); Phosphorous 2.7 mg/dL (2.4-5.1); Potassium 4.4 mMol/L (3.4-5.1); Sodium 133 mMol/L (136-145); Total Protein 7.2 gm/dL (5.7-8.2); Triglycerides 271 mg/dL (30-150); eGFR 44 See Note
[2024-05-13] MEDS: SERTRALINE HCL 25 MG TABLET 50 MG PO (07:57)
[2024-05-13] MEDS: rifaximin 550 MG TABLET PO ×2 (07:57→20:28)
[2024-05-13] MEDS: THIAMINE 100 MG TABLET PO ×2 (07:57→20:28)
[2024-05-13] MEDS: FOLIC ACID 1 MG TABLET PO ×2 (07:58→20:28)
[2024-05-13 08:17] LABS: Alanine Aminotransferase 1103 U/L (10-49)
--- NOTE | 2024-05-13 08:39 | XR_ITS ---
Examination: Right tibia-fibula 3 views Fluoroscopy Exam date and time: May 13, 2024 at 11:33 AM Indications: Acute fractures tibial shaft May 12, 2024, operative reduction internal fixation fractures today Technique And Findings: Operative reduction internal fixation fractures distal tibial shaft Anatomic alignment Orthopedic hardware satisfactory position Fluoroscopy 78 seconds radiation dose 2.95 milligray Impression: Operative reduction internal fixation fractures tibial shaft with anatomic alignment
--- NOTE | 2024-05-13 10:38 | PC.SS ---
Update: SS attempted to see patient this morning, but patient was in procedure. SS will follow up with patient on initial assessment.
--- NOTE | 2024-05-13 11:20 | SUR.PHASEI ---
1120: Pt. AAOx4, vitals stable, breathing unlabored, no complaint of pain or nausea, dressing to right leg CDI, no active bleed noted, cap refill to bilateral feet less than 3 seconds, pt. able to wiggle bilateral legs, report received from MD Truong and Randall HART.
--- NOTE | 2024-05-13 11:20 | XR_ITS ---
EXAMINATION: Ankle, right 3 views . Technique: Ankle AP, oblique, lateral 3 views Date and time of exam: May 13, 2024 1113 hrs. Indications: Postop reduction internal fixation fractures distal tibia today Findings: Operative reduction internal fixation fractures mid to distal tibial shaft Anatomic alignment Orthopedic hardware satisfactory position No active dislocation Impression: Operative reduction internal fixation fractures distal tibial shaft with anatomic alignment
--- NOTE | 2024-05-13 11:28 | ESOP_ITS ---
Date of Procedure 05/13/24 Pre Op Diagnosis Comminuted intra-articular fracture of the right distal and shaft of tibia Post Op Diagnosis Same Procedure Open reduction internal fixation with distal medial tibial plate. Size 14 healed plate Placement of 2 cannulated screw from anterior to posterior distal tibia Findings Patient had along a spiral fracture is starting from the midshaft going distally. Fracture involves the articular surface. The fracture was displaced in the midshaft area Procedure Description Patient was given general endotracheal anesthesia. Once satisfactory anesthesia achieved a tourniquet was placed on right upper thigh. Following that part was thoroughly prepped and draped. The fracture was checked under C arm in both AP and lateral projection. Following that the skin incision was made from the tip of medial malleolus extending proximally up likely towards the tibial crest and then extended further proximally. The length of the incision was about 10 inches or so. Deeper dissection was carried out. The saphenous vein and the nerve was protected all along. The fracture fragment was exposed. Wound was irrigated with antibiotic solution. Following that the fracture was reduced and checked under C arm and found to be anatomical Following that distal medial tibial plate was mounted and the bone clamp was used. Was satisfactory position was achieved and 2 cortical screws were placed proximally. Beside that 2 cortical screws were placed distally as well. Following that 1 lag screw was placed through the fracture site. The lack technique was used to put the screws. Following that 2 cannulated screws were placed at the distal end from the anterior aspect to posterior aspect and position was checked under C arm and found to be good. Following that for interlocking screw was placed distally and 3 interlocking screws were placed proximally. Interlocking technique was used. Wound was irrigated with antibiotic solution every 4 to 5 minutes Soft tissue was then closed with the above 2-0 Vicryl in an interrupted fashion. The skin was closed with a nelson To cleaning the wound with hydrogen peroxide solution a sterile dressing was applied. Short leg splint was applied and tourniquet pressure was released Patient tolerated procedure well. Estimated blood loss 25 mL. Prognosis in this case is good Anesthesia GETA and other Pathology / specimen None Estimated Blood Loss 25 Surgeon Velasquez Segal MD Surgical Staff Operation Date: 05/13/24 09:00 Case Staff Anesthesiologist: Geremias Trunog RNretail equipment associate: Suyapa Diane
--- NOTE | 2024-05-13 12:00 | SUR.PHASEI ---
1200: pt. AAOx4, vitals stable, breathing unlabored, no complaint of pain or nausea, dressing to right leg CDI, no active bleed noted, bilateral popliteal pulses strong and regular, cap refill to bilateral feet less than 3 seconds, pt. tolerated bites of ice chips well, gave report to Gerri HART prior to transfer to room 350, Family made aware of transfer to room.
--- NOTE | 2024-05-13 12:49 | PC.SS ---
Patient is alert/oriented. He resides with daughter, Ayla, who is at bedside. Patient states he's independent with ADL's. He just had surgery this morning for right ankle fracture. Daughter states she already got patient a wheelchair but she thinks he may need a walker for home. Patient's daughter provides transportation assistance for patient. PCP: Dr. Serna @ [facility] on [address]. Last appt. was in January. D/c plan: home with family. Daughter, Ayla, remains alt medical decision maker.
--- NOTE | 2024-05-13 12:55 | ESCONSULT_ITS ---
RE: VENESSA JOSHUA : 1960 DATE OF CONSULTATION: 05/13/2024 Thank you, Dr. Mcmullen for asking me to consult on the patient whom I saw early in the morning on 05/13/2024. HISTORY OF PRESENT ILLNESS: As per history available, the patient fell down at home on 05/12/2024. After that he was unable to walk. The patient sustained fracture of the right distal tibia and ankle. The patient was brought to the emergency room and x-ray was obtained. CT scan was also obtained, which was reviewed by me. PAST MEDICAL HISTORY: The patient has a history of high blood pressure. Beside that the patient has a history of alcoholic hepatitis and anxiety. PAST SURGICAL HISTORY: The patient underwent left total knee replacement in the past. DRUG HISTORY: 1. Atenolol. 2. Lisinopril. 3. Rifaximin. 4. Sertraline. ALLERGIES: NIL KNOWN. FAMILY HISTORY AND SOCIAL HISTORY: Noncontributory in this case. PHYSICAL EXAMINATION: GENERAL: Fully alert and oriented person. VITAL SIGNS: Pulse 82 per minute, repeat pulse 68 per minute. Blood pressure is 100/76. NECK: Soft, supple. No masses felt. Trachea is centrally replaced. CARDIOVASCULAR SYSTEM: First and second heart sounds are normal. No murmur heard. RESPIRATORY SYSTEM: Bilateral vesicular breath sounds. CHEST: Clear. ABDOMEN: Soft. No masses felt. Bowel sounds present. EXTREMITIES: Right lower limb examination reveals swelling, 1+ and 2+ tenderness. Neurovascularly it is intact. DIAGNOSTIC DATA: X-ray revealed comminuted fracture at the shaft area, which is extending distally up to the intraarticular region. Fracture line is going through the intraarticular region, which was also confirmed by CT scan of the ankle. It also revealed a fracture of the posterior malleolus. The lab work was checked. The patient's platelet was 132. ASSESSMENT AND PLAN: The patient was explained the diagnosis and prognosis. I explained that plate and screws will be put on. Detailed discussion took place. Risks with anesthesia was explained and that includes, but not limited to reaction to anesthetic agents, cardiac arrest, rarely it might be fatal. Risks with operations include infection and if that happens, the patient may need further surgical procedure. Other risks include delayed healing, wound assessment, etc. No guarantees were given regarding the outcome of the procedure and/or healing process. Indeed, the patients who consume a lot of alcohol delayed union and nonunion may take place. After discussing at length, the patient wanted to proceed with surgery. No guarantees were given regarding healing process. Surgery book for 05/13/2024. DT: 11:37:27 TT: 12:54:00 Ref: [id number] - TID: [id number]
--- NOTE | 2024-05-13 13:55 | ESPR_ITS ---
Documentation for date of: 05/13/24 Subjective Subjective Interval history: Patient was examined bedside this morning, he underwent open reduction internal fixation with distal medial tibial plate. Pending hepatitis panel and Dr. Mares's recommendations, AST ALT trending down. Exam Vital Signs Temp Pulse Resp BP Pulse Ox O2 Del Method O2 Flow Rate 97.9 F 94 17 109/77 94 L Nasal Cannula 2 05/13/24 13:33 05/13/24 13:33 05/13/24 13:33 05/13/24 13:33 05/13/24 13:33 05/13/24 13:05/13/24 13:33 Narrative Exam GENERAL: Comfortable adult seen resting comfortably in hospital bed, no acute distress VITALS: All vitals were reviewed and the pulse ox is 98% on room air HEENT: Normocephalic, atraumatic. Pupils are equal and reactive. Oral mucosa is moist. NECK: Supple, nontender, no JVD CHEST: Symmetrical, atraumatic and with equal expansion ,Nontender on palpation CARDIOVASCULAR: Heart regular rhythm & rate. S1/S2. no murmur or gallop rub or extra beats. LUNGS: Clear to auscultation bilaterally with symmetrical chest rise. No laboring tachypnea or wheezing. No intercostal subcostal retraction. No rales and no rhonchi. ABDOMEN: Soft, flat, nontender to palpation, no guarding or rebound tenderness. Active and normal bowel sounds. EXTREMITIES:Moves all 4 extremities,left leg wrapped . SKIN: Warm and dry, no jaundice or rashes noted. NEURO: Patient is AO x 3, Cranial nerves II through XII grossly intact. There is no focal neurologic deficits noted. PSYCHIATRIC: Patient is in normal mood, cooperative, no SI or HI or hallucinations. Objective Labs 05/14/24 05:27 05/14/24 05:27 Labs: Laboratory Results - last 24 hr 05/12/24 05/12/24 05/13/24 16:47 20:57 01:00 WBC 9.5 RBC 4.58 Hgb 15.1 Hct 44.0 MCV 96 MCH 33.0 MCHC 34.3 RDW Std Deviation 45.6 H Plt Count 134 L Neut % (Auto) 82 H Lymph % (Auto) 11 [place] % (Auto) 6 Eos % (Auto) 0 Baso % (Auto) 0 Neut # (Auto) 7.8 H Lymph # (Auto) 1.0 [place] # (Auto) 0.5 Eos # (Auto) 0.0 Baso # (Auto) 0.0 Immature Gran # (Auto) 0.08 H Absolute Nucleated RBC 0.00 Immature Gran % 1 H Nucleated RBC % 0 PT 12.8 H INR 1.2 APTT 30.2 Sodium 134 L Potassium 4.3 Chloride 101 Carbon Dioxide 21.8 Anion Gap 11 BUN 29 H Creatinine 1.9 H Estim Creat Clear Calc 47.4 L eGFR 39 L BUN/Creatinine Ratio 15 [address]ucose [address] Glu mg/dL Hemoglobin A1c Calculated Osmolality 275 Calcium 10.2 Corrected Calcium 10.2 H Phosphorus Magnesium Total Bilirubin 4.2 H AST 581 H* ALT 1265 H* Alkaline Phosphatase 197 H Total Protein 7.8 Albumin 4.6 Globulin 3.2 Albumin/Globulin Ratio 1.4 Triglycerides Cholesterol LDL Cholesterol, Calc HDL Cholesterol Cholesterol/HDL Ratio TSH Ur Collection Type Catheter Urine Color Yellow Urine Clarity Clear Urine pH 5.5 Ur Specific [place] 1.011 Urine Protein Negative Urine Glucose (UA) 3+ A Urine Ketones Negative Urine Blood Negative Urine Nitrite Negative Urine Bilirubin Negative Urine Urobilinogen (Auto) 3.0 Ur Leukocyte Esterase Negative Urine RBC < 1 Urine WBC 2 Ur Squamous Epith Cells 0 Urine Bacteria None Acetaminophen Ethyl Alcohol < 3.0 05/13/24 06:00 WBC 5.4 D RBC 4.23 L Hgb 13.9 Hct 41.5 MCV 98 MCH 32.9 MCHC 33.5 RDW Std Deviation 46.7 H Plt Count 99 L D Neut % (Auto) 75 Lymph % (Auto) 15 [place] % (Auto) 8 Eos % (Auto) 2 Baso % (Auto) 1 Neut # (Auto) 4.1 Lymph # (Auto) 0.8 L [place] # (Auto) 0.4 Eos # (Auto) 0.1 Baso # (Auto) 0.0 Immature Gran # (Auto) 0.06 H Absolute Nucleated RBC 0.00 Immature Gran % 1 H Nucleated RBC % 0 PT INR APTT Sodium 133 L Potassium 4.4 Chloride 103 Carbon Dioxide 23.9 Anion Gap 6 L BUN 26 H Creatinine 1.7 H Estim Creat Clear Calc 53.0 L eGFR 44 L BUN/Creatinine Ratio [address] Glu mg/dL 103 Hemoglobin A1c 5.2 Calculated Osmolality 271 L Calcium 9.8 Corrected Calcium 9.8 Phosphorus 2.7 Magnesium 2.0 Total Bilirubin 6.5 H D AST 510 H* ALT 1103 H* Alkaline Phosphatase 186 H Total Protein 7.2 Albumin 4.3 Globulin 2.9 Albumin/Globulin Ratio 1.5 Triglycerides 271 H Cholesterol 143 LDL Cholesterol, Calc 75 HDL Cholesterol 14 L Cholesterol/HDL Ratio 10.2 H TSH 2.80 Ur Collection Type Urine Color Urine Clarity Urine pH Ur Specific [place] Urine Protein Urine Glucose (UA) Urine Ketones Urine Blood Urine Nitrite Urine Bilirubin Urine Urobilinogen (Auto) Ur Leukocyte Esterase Urine RBC Urine WBC Ur Squamous Epith Cells Urine Bacteria Acetaminophen 2.7 L Ethyl Alcohol Quality Measures Quality Measures none Advance care planning discussed with:: patient Assessment & Plan Assessment Current Active Medications: Generic Name Dose Route Start Last Admin Trade Name Freq PRN Reason Stop Dose Admin Acetaminophen 650 mg 05/12/24 18:25 Acetaminophen 325 Mg Tablet PO 06/11/24 18:24 Q6H PRN PAIN SCALE 1-3 (mild Hydrocodone Bitart/Acetaminophen 1 tab 05/12/24 18:25 Hydrocodone/Apap 5/325 Tablet PO 05/17/24 18:24 Q4HR PRN PAIN SCALE 4-6 (Moderate Folic Acid 1 mg 05/12/24 21:00 05/13/24 07:58 Folic Acid 1 Mg Tablet PO 05/17/24 20:59 1 mg BID PURA Administration Hydromorphone HCl 0.5 mg 05/12/24 18:25 05/13/24 05:15 Hydromorphone Inj 2 Mg/Ml Vial IVP 05/17/24 18:24 0.5 mg Q4H PRN Administration Pain 7-10 Cefazolin Sodium/Dextrose 1 gm in 50 mls @ 50 mls/hr 05/13/24 17:30 Ancef Ivpb IV 05/14/24 02:29 Q8H PURA Lorazepam 0.5 mg 05/12/24 18:30 Lorazepam 0.5 Mg Tablet PO 05/17/24 18:29 Q4HR PRN CIWA Score 2-6 Lorazepam 1 mg 05/12/24 18:30 Lorazepam 2 Mg/Ml Vial IV X1 PRN Breakthrough Agitation Lorazepam 1 mg 05/13/24 09:34 Lorazepam 2 Mg/Ml Vial IV 05/17/24 18:29 Q2HR PRN CIWA SCORE 7-14 Rifaximin 550 mg 05/12/24 21:00 05/13/24 07:57 Rifaximin 550 Mg Tablet PO 05/19/24 20:59 550 mg BID PURA Administration Sertraline HCl 50 mg 05/13/24 09:00 05/13/24 07:57 Sertraline Hcl 25 Mg Tablet PO 06/12/24 08:59 50 mg QDAY PURA Administration Thiamine HCl 100 mg 05/12/24 21:00 05/13/24 07:57 Thiamine 100 Mg Tablet PO 05/17/24 20:59 100 mg BID PURA Administration Plan The patient is a 63-year-old male with significant past medical history of hypertension, alcoholic hepatitis and anxiety presented to ED on 05/12/2024 with chief complaint of right ankle pain after a ground-level fall. He reported that he was standing, and felt like his ground was moving, and fell down and was admitted for management of Lt acute fracture of distal tibial shaft and posterior malleolar fracture. #Acute Fracture of distal tibial shaft s/pdistal medial tibial plate. #Non displaced Posterior malleolar fracture s/p open reduction internal fixation #Ground level fall Pt. complaint of right ankle pain after a ground-level fall. He reported that he was standing, and felt like his ground was moving, and fell down. He tried searching for any holes in the ground but there was none. He denied any lightheadedness, dizziness, SOB, chest pain, LOC, any incontinence during the episode. Rt ankle xray Acute comminuted fractures distal tibial shaft, Rt tibia/fibula x ray Acute fractures distal tibial shaft, Acute fractures proximal fibular shaft without significant displacement. CT ankle Acute fractures through the distal tibial shaft, Nondisplaced posterior malleolar fracture, No ankle dislocation -Pain management -Dr. Parks on board, appreciate [facility] - #Alcohol abuse disorder #Alcoholic hepatitis #transaminitis - trending down Drinks 2-3 beers/day, has previous labs with elevated liver enzymes and bilirubin total bilirubin 4.2, AST 581 and ALT 1265 with ALP 197 during presentation US GB Absent gallbladder, Common bile duct 0.7 cm no stones noted, Mild hepatomegaly fatty infiltration, primary hepatocellular disease pattern no focal liver lesions. -On [facility] protocol -Pending Hepatic panel -Monitor closely -Rifaximine 550mg BID -maddery score of 7.9 , so he does not need steroid -Dr. Mares consulted, appreciate reccs #Hypercalcemia- resolved #ABILIO- improving Likely prerenal DDx: Intrarenal vs postrenal Cr 1.9, previous on 2021 was 1.1, today- 1.7 -Maintainance IV NS 150cc/h for 1 L, discontinued -Monitor daily renal panel -Avoid nephrotoxins #Hypoosmolar hypovolemic hyponatremia -On IV NS 150cc/Hr(discontinue ) -Monitor renal panel #Hypertension Currently BP stable -Hold off on home antihypertensive for now, resume as needed #Anxiety -Started home sertraline 50mg daily Health maintenance: Dispo: Admitted for management of Lt acute fracture of distal tibial shaft and posterior malleolar fracture DVT prophylaxis: On Lt LL SCD's Diet: cardiac diet CODE: Full code The plan was discussed with my attending Dr Petersen, Ellie Hylton MD, PGY-3 Attending Provider Attestation/Addendum I reviewed labs, imaging, EKG, home medications and prior available records. Face to face evaluation was performed by me. I have personally examined the patient and discussed assessment and plan with the IM team. I reviewed the resident note and agree with the plan with exceptions as below. Right ankle fracture This tibial fracture Transaminitis ABILIO Alcohol abuse Alcohol hepatitis Thrombocytopenia Plan for open reduction and internal fixation today Management of pain as needed Trend LFTs: Downtrending Monitor kidney function: Creatinine improved Maddrey score is 7.9. Not a candidate for corticosteroid. Counseled the patient regarding importance of alcohol cessation Monitor platelet level. No signs of bleeding.
[2024-05-13] MEDS: ceFAZolin/D5W 1 GM IVPB 1 GM/50 ML BAG IV (16:36)
--- NOTE | 2024-05-13 17:15 | SUR.OPER ---
Implants: 3.5 Cortex LP x 1 2.7 Locking x1
--- NOTE | 2024-05-13 18:25 | ESCONSULT_ITS ---
HPI Data of Consult Requesting Physician: Carri Nair MD Primary Care Provider: Raina Serna MD Consult Narrative Reason for consult: Abnormal LFTs History of present illness: 63 years old male I been consulted for abnormal liver function test he fell down and has a fracture of the distal tibia with the ankle fracture requiring ORIF He was found to have a total bilirubin of 4.2 AST ALT 581 and 1265 and alk phos of 197 on admission He does drink 2-3 beers per day His hepatitis A, B, and C serologies in the past have been negative Liver ultrasound done showed hepatomegaly fatty liver and absent gallbladder cc:: cc: Carri Nair MD Review of Systems Review of Systems Systems Reviewed: All systems reviewed, normal except as documented Past Medical History Surgical History OTHER SURGICAL HX: Alcoholic liver disease Essential hypertension Anxiety neurosis Meds Home Medications and Allergies Home Medications ?Medication ?Instructions ?Recorded ?Confirmed ?Type lisinopril 20 mg tablet 20 mg PO DAILY 05/09/18 05/12/24 History sertraline 50 mg tablet 50 mg PO QDAY 06/20/18 05/12/24 History atenolol 50 mg tablet 50 mg PO QDAY 03/18/22 05/12/24 History rifaximin 550 mg tablet (Xifaxan) 550 mg PO BID 05/12/24 05/12/24 History Allergies Allergy/AdvReac Type Severity Reaction Status Date / Time No Known Allergies Allergy Verified 05/12/24 17:14 Exam Vital Signs Temp Pulse Resp BP Pulse Ox O2 Del Method O2 Flow Rate 98.7 F 74 16 126/72 95 Room Air 2 05/13/24 15:45 05/13/24 15:45 05/13/24 15:45 05/13/24 15:45 05/13/24 15:45 05/13/24 15:45 05/13/24 13:33 Constitutional Comments: Alert oriented Routine Respiratory Exam Comments: Normal to auscultation Routine Abdominal Exam Comments: Soft nontender Results Labs 05/13/24 06:00 05/13/24 06:00 Labs: Short CBC 05/13/24 Range/Units 06:00 WBC 5.4 D (3.8-10.6) Thou/mm3 Hgb 13.9 (13.5-16.0) g/dL Hct 41.5 (41.0-53.0) % Plt Count 99 L D (140-440) Thou/mm3 BMP 05/13/24 06:00 Sodium 133 L Potassium 4.4 Chloride 103 Carbon Dioxide 23.9 BUN 26 H Creatinine 1.7 H Glucose 105 Calcium 9.8 Liver Function 05/13/24 Range/Units 06:00 Total Bilirubin 6.5 H D (0.3-1.2) mg/dL AST 510 H* (0-34) U/L ALT 1103 H* (10-49) U/L Alkaline Phosphatase 186 H (46-116) U/L Albumin 4.3 (3.4-4.8) gm/dL Urine 05/13/24 Range/Units 01:00 Urine Color Yellow (Lt Yel-Yel) Urine Clarity Clear (Clear/Hazy) Urine pH 5.5 (5.0-7.0) Ur Specific [place] 1.011 (1.001-1.035) Urine Protein Negative (Neg - Trace) Urine Glucose (UA) 3+ A (Negative) Assessment and Plan Additional Assessment & Plan Additional Plan: # Abnormal liver functions most likely alcohol induced liver disease however other cause of chronic active hepatitis needs to be ruled out Hepatitis A, B, and C serologies have been negative in the past the first 1 have already been ordered # Right ankle fracture distal tibial fracture requiring ORIF # Essential hypertension # Anxiety 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
[2024-05-13 19:48] LABS: Iron 236 mcg/dL (65-175); Percent Iron Saturation 69 % (20-55); Total Iron Binding Capacity 342 mcg/dL (250-425); Unsaturated Iron Binding 106 (225-295)
[2024-05-14] VITALS (7 sets, daily range): BP systolic 90–116; BP diastolic 55–70; PULSE 72–88; RESP 16–20; TEMP 36.2–36.6; O2SAT 93–95
[2024-05-14] MEDS: ceFAZolin/D5W 1 GM IVPB 1 GM/50 ML BAG IV (01:47)
[2024-05-14] MEDS: HYDROcodone/APAP 5/325 TABLET 1 TAB PO ×5 (01:54→20:10)
[2024-05-14 03:50] LABS: Hepatitis A Antibody IgM Non Reactive (Non React); Hepatitis B Core Antibody IgM Non Reactive (Non React); Hepatitis B Surface Antigen Non Reactive (Non React); Hepatitis C Antibody Non Reactive (Non React)
[2024-05-14 06:14] LABS: Basophils % (Auto) 0 % (0-2.5); Eosinophils % (Auto) 0 % (0-10); Hematocrit 36.5 % (41.0-53.0); Hemoglobin 12.9 g/dL (13.5-16.0); Immature Granulocytes % (Auto) 1 % (0-0); Immature Granulocytes Auto 0.05 Thou/mm3 (0.00-0.00); Lymphocytes # (Auto) 0.4 Thou/mm3 (1.0-4.8); Lymphocytes % (Auto) 4 % (10-50); Mean Corpuscular HGB Conc 35.3 g/dl (31.0-37.0); Mean Corpuscular Hemoglobin 33.6 pg (25.0-35.0); Mean Corpuscular Volume 95 fL (80-100); Monocytes # (Auto) 0.2 Thou/mm3 (0.0-0.8); Monocytes % (Auto) 3 % (0-12); Neutrophils # (Auto) 7.7 Thou/mm3 (1.8-7.7); Neutrophils % (Auto) 93 % (37-80); Nucleated Red Blood Cell % 0 /100 WBC (0); Platelet Count 93 Thou/mm3 (140-440); RDW Standard Deviation 43.8 fL (35.1-43.9); Red Blood Count 3.84 Miln/mm3 (4.50-5.90); White Blood Count 8.4 Thou/mm3 (3.8-10.6)
[2024-05-14 06:47] LABS: Alanine Aminotransferase 750 U/L (10-49); Albumin, Serum 4.2 gm/dL (3.4-4.8); Albumin/Globulin Ratio 1.5 (1.2-2.2); Alkaline Phosphatase 168 U/L (46-116); Anion Gap 9 (7-16); Aspartate Amino Transferase 277 U/L (0-34); BUN/Creatinine Ratio 18 Ratio (12-20); Bilirubin,Total 5.2 mg/dL (0.3-1.2); Blood Urea Nitrogen 25 mg/dL (9-23); Calcium 9.4 mg/dL (8.3-10.6); Calcium (Corrected) 9.4 mg/dL (8.5-10.1); Carbon Dioxide 23.7 mMol/L (20.0-31.0); Chloride 99 mMol/L (98-107); Creatinine (Component) 1.4 mg/dL (0.6-1.3); Estimated Creatinine Clearance 64.4 mL/min (>60); Globulin 2.8 gm/dL (2.3-3.5); Glucose 141 mg/dL (74-106); Osmolality,Calculated 270 (275-295); Phosphorous 3.1 mg/dL (2.4-5.1); Potassium 4.2 mMol/L (3.4-5.1); Sodium 132 mMol/L (136-145); eGFR 56 See Note
[2024-05-14] MEDS: rifaximin 550 MG TABLET PO ×2 (08:36→20:03)
[2024-05-14] MEDS: FOLIC ACID 1 MG TABLET PO ×2 (08:36→20:03)
[2024-05-14] MEDS: SERTRALINE HCL 25 MG TABLET 50 MG PO (08:36)
[2024-05-14] MEDS: THIAMINE 100 MG TABLET PO ×2 (08:36→20:03)
--- NOTE | 2024-05-14 10:00 | PC.SS ---
Follow up note: Patient already had surgery. Pending PT eval and rec's. Patient will need alcohol rehab resources upon discharge. Patient resides with daughter. They are open to SNF vs HH if needed. If patient discharges home, he may need a walker. Daughter has already purchased a wheelchair.
--- NOTE | 2024-05-14 10:33 | ESPR_ITS ---
Documentation for date of: 05/14/24 Subjective Subjective Interval history: Patient was examined bedside this morning, he was comfortably sitting in bed. Pending PT eval. Started the patient on 81 twice daily of aspirin for DVT prophylaxis Exam Vital Signs Temp Pulse Resp BP Pulse Ox O2 Del Method O2 Flow Rate 97.2 F 80 16 101/67 95 Room Air 2 05/14/24 08:00 05/14/24 08:03 05/14/24 08:03 05/14/24 08:00 05/14/24 08:03 05/14/24 08:00 05/14/24 08:03 Narrative Exam GENERAL: Comfortable adult seen resting comfortably in hospital bed, no acute distress VITALS: All vitals were reviewed and the pulse ox is 98% on room air HEENT: Normocephalic, atraumatic. Pupils are equal and reactive. Oral mucosa is moist. NECK: Supple, nontender, no JVD CHEST: Symmetrical, atraumatic and with equal expansion ,Nontender on palpation CARDIOVASCULAR: Heart regular rhythm & rate. S1/S2. no murmur or gallop rub or extra beats. LUNGS: Clear to auscultation bilaterally with symmetrical chest rise. No laboring tachypnea or wheezing. No intercostal subcostal retraction. No rales and no rhonchi. ABDOMEN: Soft, flat, nontender to palpation, no guarding or rebound tenderness. Active and normal bowel sounds. EXTREMITIES:Moves all 4 extremities,left leg wrapped . SKIN: Warm and dry, no jaundice or rashes noted. NEURO: Patient is AO x 3, Cranial nerves II through XII grossly intact. There is no focal neurologic deficits noted. PSYCHIATRIC: Patient is in normal mood, cooperative, no SI or HI or hallucinations. Objective Labs 05/15/24 04:48 05/15/24 04:48 Labs: Laboratory Results - last 24 hr 05/12/24 05/13/24 05/14/24 16:47 06:00 05:27 WBC 8.4 D RBC 3.84 L Hgb 12.9 L Hct 36.5 L MCV 95 MCH 33.6 MCHC 35.3 RDW Std Deviation 43.8 Plt Count 93 L Neut % (Auto) 93 H Lymph % (Auto) 4 L [place] % (Auto) 3 Eos % (Auto) 0 Baso % (Auto) 0 Neut # (Auto) 7.7 Lymph # (Auto) 0.4 L [place] # (Auto) 0.2 Eos # (Auto) 0.0 Baso # (Auto) 0.0 Immature Gran # (Auto) 0.05 H Absolute Nucleated RBC 0.00 Immature Gran % 1 H Nucleated RBC % 0 Sodium 132 L Potassium 4.2 Chloride 99 Carbon Dioxide 23.7 Anion Gap 9 BUN 25 H Creatinine 1.4 H Estim Creat Clear Calc 64.4 eGFR 56 L BUN/Creatinine Ratio 18 Glucose 141 H Calculated Osmolality 270 L Calcium 9.4 Corrected Calcium 9.4 Phosphorus 3.1 Magnesium 2.0 Iron 236 H TIBC 342 Iron Saturation 69 H Unsat Iron Binding 106 L Total Bilirubin 5.2 H D AST 277 H ALT 750 H* Alkaline Phosphatase 168 H Total Protein 7.0 Albumin 4.2 Globulin 2.8 Albumin/Globulin Ratio 1.5 Tumor Marker AFP 3.30 Hepatitis A IgM Ab Non Reactive Hep Bs Antigen Non Reactive Hep B Core IgM Ab Non Reactive Hepatitis C Antibody Non Reactive Quality Measures Quality Measures none Advance care planning discussed with:: patient Assessment & Plan Assessment Current Active Medications: Generic Name Dose Route Start Last Admin Trade Name Freq PRN Reason Stop Dose Admin Acetaminophen 650 mg 05/12/24 18:25 Acetaminophen 325 Mg Tablet PO 06/11/24 18:24 Q6H PRN PAIN SCALE 1-3 (mild Hydrocodone Bitart/Acetaminophen 1 tab 05/12/24 18:25 05/14/24 06:04 Hydrocodone/Apap 5/325 Tablet PO 05/17/24 18:24 1 tab Q4HR PRN Administration PAIN SCALE 4-6 (Moderate Folic Acid 1 mg 05/12/24 21:00 05/14/24 08:36 Folic Acid 1 Mg Tablet PO 05/17/24 20:59 1 mg BID PURA Administration Hydromorphone HCl 0.5 mg 05/12/24 18:25 05/13/24 20:34 Hydromorphone Inj 2 Mg/Ml Vial IVP 05/17/24 18:24 0.5 mg Q4H PRN Administration Pain 7-10 Lorazepam 0.5 mg 05/12/24 18:30 Lorazepam 0.5 Mg Tablet PO 05/17/24 18:29 Q4HR PRN CIWA Score 2-6 Lorazepam 1 mg 05/12/24 18:30 Lorazepam 2 Mg/Ml Vial IV X1 PRN Breakthrough Agitation Lorazepam 1 mg 05/13/24 09:34 Lorazepam 2 Mg/Ml Vial IV 05/17/24 18:29 Q2HR PRN CIWA SCORE 7-14 Rifaximin 550 mg 05/12/24 21:00 05/14/24 08:36 Rifaximin 550 Mg Tablet PO 05/19/24 20:59 550 mg BID PURA Administration Sertraline HCl 50 mg 05/13/24 09:00 05/14/24 08:36 Sertraline Hcl 25 Mg Tablet PO 06/12/24 08:59 50 mg QDAY PURA Administration Thiamine HCl 100 mg 05/12/24 21:00 05/14/24 08:36 Thiamine 100 Mg Tablet PO 05/17/24 20:59 100 mg BID PURA Administration Plan The patient is a 63-year-old male with significant past medical history of hypertension, alcoholic hepatitis and anxiety presented to ED on 05/12/2024 with chief complaint of right ankle pain after a ground-level fall. He reported that he was standing, and felt like his ground was moving, and fell down and was admitted for management of Lt acute fracture of distal tibial shaft and posterior malleolar fracture. #Acute Fracture of distal tibial shaft s/pdistal medial tibial plate. POD 1 #Non displaced Posterior malleolar fracture s/p open reduction internal fixation POD 1 #Ground level fall Pt. complaint of right ankle pain after a ground-level fall. He reported that he was standing, and felt like his ground was moving, and fell down. He tried searching for any holes in the ground but there was none. He denied any lightheadedness, dizziness, SOB, chest pain, LOC, any incontinence during the episode. Rt ankle xray Acute comminuted fractures distal tibial shaft, Rt tibia/fibula x ray Acute fractures distal tibial shaft, Acute fractures proximal fibular shaft without significant displacement. CT ankle Acute fractures through the distal tibial shaft, Nondisplaced posterior malleolar fracture, No ankle dislocation -Pain management -Dr. Parks on board, appreciate reccs -Pending PT evulation -Started the patient on 81 twice daily aspirin for DVT prophylaxis #Alcohol abuse disorder #Alcoholic hepatitis #transaminitis - trending down Drinks 2-3 beers/day, has previous labs with elevated liver enzymes and bilirubin total bilirubin 4.2, AST 581 and ALT 1265 with ALP 197 during presentation US GB Absent gallbladder, Common bile duct 0.7 cm no stones noted, Mild hepatomegaly fatty infiltration, primary hepatocellular disease pattern no focal liver lesions. -On [facility] protocol -Pending Hepatic panel -Monitor closely -Rifaximine 550mg BID -maddery score of 7.9 , so he does not need steroid -Dr. Mares consulted, appreciate reccs, will follow up on liver enzymes #Hypercalcemia- resolved #ABILIO- improving Likely prerenal DDx: Intrarenal vs postrenal Cr 1.9, previous on 2021 was 1.1, today- 1.4 -Maintainance IV NS 150cc/h for 1 L, discontinued -Monitor daily renal panel -Avoid nephrotoxins #Hypoosmolar hypovolemic hyponatremia -On IV NS 150cc/Hr(discontinue ) -Monitor renal panel #Hypertension Currently BP stable -Hold off on home antihypertensive for now, resume as needed #Anxiety -Started home sertraline 50mg daily Health maintenance: Dispo: Admitted for management of Lt acute fracture of distal tibial shaft and posterior malleolar fracture DVT prophylaxis: aspirin 81 bid Diet: cardiac diet CODE: Full code The plan was discussed with my attending Dr Petersen, Ellie Hylton MD, PGY-3 Attending Provider Attestation/Addendum I reviewed labs, imaging, EKG, home medications and prior available records. Face to face evaluation was performed by me. I have personally examined the patient and discussed assessment and plan with the IM team. I reviewed the resident note and agree with the plan with exceptions as below. Right ankle fracture This tibial fracture Transaminitis ABILIO Alcohol abuse Alcohol hepatitis Thrombocytopenia Status post open reduction and internal fixation today PT evaluation Aspirin 81 mg twice daily for DVT prophylaxis Management of pain as needed Trend LFTs: Downtrending Monitor kidney function: Creatinine improved Maddrey score is 7.9. Not a candidate for corticosteroid. Counseled the patient regarding importance of alcohol cessation Monitor platelet level. No signs of bleeding
--- NOTE | 2024-05-14 12:20 | PC.SS ---
Follow up note: SS spoke to PT and they recommend HH services and a FWW. Patient already has a wheelchair at home.
[2024-05-14] MEDS: HEPARIN SOD INJ 5000 UNIT/ML VIAL SC (13:07)
[2024-05-14] MEDS: HYDROmorphone INJ 2 MG/ML VIAL 0.5 MG IVP (17:22)
[2024-05-14] MEDS: ASPIRIN EC 81 MG TABEC PO (20:03)
--- NOTE | 2024-05-14 21:43 | ESPR_ITS ---
Documentation for date of: 05/14/24 Subjective Subjective Interval history: Patient evaluated workup for the chronic active hepatitis ordered Exam Vital Signs Temp Pulse Resp BP Pulse Ox O2 Del Method O2 Flow Rate 97.5 F 82 20 111/66 93 L Room Air 2 05/14/24 20:00 05/14/24 20:00 05/14/24 20:00 05/14/24 20:00 05/14/24 20:00 05/14/24 20:00 05/14/24 08:03 Objective Labs 05/14/24 05:27 05/14/24 05:27 Labs: Laboratory Results - last 24 hr 05/12/24 05/13/24 05/14/24 16:47 06:00 05:27 WBC 8.4 D RBC 3.84 L Hgb 12.9 L Hct 36.5 L MCV 95 MCH 33.6 MCHC 35.3 RDW Std Deviation 43.8 Plt Count 93 L Neut % (Auto) 93 H Lymph % (Auto) 4 L [place] % (Auto) 3 Eos % (Auto) 0 Baso % (Auto) 0 Neut # (Auto) 7.7 Lymph # (Auto) 0.4 L [place] # (Auto) 0.2 Eos # (Auto) 0.0 Baso # (Auto) 0.0 Immature Gran # (Auto) 0.05 H Absolute Nucleated RBC 0.00 Immature Gran % 1 H Nucleated RBC % 0 Sodium 132 L Potassium 4.2 Chloride 99 Carbon Dioxide 23.7 Anion Gap 9 BUN 25 H Creatinine 1.4 H Estim Creat Clear Calc 64.4 eGFR 56 L BUN/Creatinine Ratio 18 Glucose 141 H Calculated Osmolality 270 L Calcium 9.4 Corrected Calcium 9.4 Phosphorus 3.1 Magnesium 2.0 Total Bilirubin 5.2 H D AST 277 H ALT 750 H* Alkaline Phosphatase 168 H Total Protein 7.0 Albumin 4.2 Globulin 2.8 Albumin/Globulin Ratio 1.5 Tumor Marker AFP 3.30 Hepatitis A IgM Ab Non Reactive Hep Bs Antigen Non Reactive Hep B Core IgM Ab Non Reactive Hepatitis C Antibody Non Reactive Impressions Impression: # Abnormal liver function test Workup in progress Assessment & Plan A&P Narrative # Abnormal liver functions most likely alcohol induced liver disease however other cause of chronic active hepatitis needs to be ruled out Hepatitis A, B, and C serologies have been negative in the past the first 1 have already been ordered # Right ankle fracture distal tibial fracture requiring ORIF # Essential hypertension # Anxiety 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
[2024-05-15] VITALS: BP 107/73; PULSE 77; RESP 19; TEMP 36.7; O2SAT 92
[2024-05-15 00:22] VITALS: PULSE 77; RESP 18; RESP 93
[2024-05-15] MEDS: HYDROmorphone INJ 2 MG/ML VIAL 0.5 MG IVP (03:49)
[2024-05-15 06:26] LABS: Basophils % (Auto) 0 % (0-2.5); Eosinophils % (Auto) 0 % (0-10); Hematocrit 34.4 % (41.0-53.0); Hemoglobin 11.7 g/dL (13.5-16.0); Immature Granulocytes % (Auto) 1 % (0-0); Immature Granulocytes Auto 0.06 Thou/mm3 (0.00-0.00); Lymphocytes # (Auto) 0.6 Thou/mm3 (1.0-4.8); Lymphocytes % (Auto) 10 % (10-50); Mean Corpuscular Hemoglobin 33.2 pg (25.0-35.0); Mean Corpuscular Volume 98 fL (80-100); Monocytes # (Auto) 0.4 Thou/mm3 (0.0-0.8); Monocytes % (Auto) 6 % (0-12); Neutrophils # (Auto) 5.2 Thou/mm3 (1.8-7.7); Neutrophils % (Auto) 83 % (37-80); Nucleated Red Blood Cell % 0 /100 WBC (0); Platelet Count 83 Thou/mm3 (140-440); RDW Standard Deviation 46.3 fL (35.1-43.9); Red Blood Count 3.52 Miln/mm3 (4.50-5.90); White Blood Count 6.3 Thou/mm3 (3.8-10.6)
[2024-05-15 07:44] LABS: Alanine Aminotransferase 529 U/L (10-49); Albumin, Serum 4.1 gm/dL (3.4-4.8); Albumin/Globulin Ratio 1.6 (1.2-2.2); Alkaline Phosphatase 161 U/L (46-116); Anion Gap 7 (7-16); Aspartate Amino Transferase 161 U/L (0-34); BUN/Creatinine Ratio 22 Ratio (12-20); Bilirubin,Total 3.1 mg/dL (0.3-1.2); Blood Urea Nitrogen 26 mg/dL (9-23); Calcium 9.5 mg/dL (8.3-10.6); Calcium (Corrected) 9.5 mg/dL (8.5-10.1); Carbon Dioxide 27.8 mMol/L (20.0-31.0); Chloride 98 mMol/L (98-107); Creatinine (Component) 1.2 mg/dL (0.6-1.3); Estimated Creatinine Clearance 75.1 mL/min (>60); Globulin 2.6 gm/dL (2.3-3.5); Glucose 138 mg/dL (74-106); Osmolality,Calculated 273 (275-295); Phosphorous 2.5 mg/dL (2.4-5.1); Potassium 4.5 mMol/L (3.4-5.1); Sodium 133 mMol/L (136-145); Total Protein 6.7 gm/dL (5.7-8.2); eGFR > 60 See Note
[2024-05-15] MEDS: rifaximin 550 MG TABLET PO ×2 (07:58→20:45)
[2024-05-15] MEDS: SERTRALINE HCL 25 MG TABLET 50 MG PO (07:59)
[2024-05-15] MEDS: ASPIRIN EC 81 MG TABEC PO ×2 (07:59→20:45)
[2024-05-15] MEDS: THIAMINE 100 MG TABLET PO ×2 (07:59→20:45)
[2024-05-15 08:00] VITALS: BP 112/73; PULSE 61; RESP 17; TEMP 36.4; O2SAT 96
[2024-05-15] MEDS: FOLIC ACID 1 MG TABLET PO ×2 (08:00→20:45)
[2024-05-15] MEDS: HYDROcodone/APAP 5/325 TABLET 1 TAB PO ×2 (08:00→11:54)
--- NOTE | 2024-05-15 08:54 | PC.NURSE ---
[facility] [employer] downtime occurred on 05/15/24 from 0100 to 0700.
--- NOTE | 2024-05-15 11:09 | PC.SS ---
Addendum entered by Janelle Clay 05/15/24 11:21: SS submitted DME inquiry through [employer] for review and delivery Original Note: Patient needs FWW for home. The diagnosis creates mobility limitation that significantly impairs ability to participate in the patients activities of daily living either in their entirety, or in a reasonable time frame. Also the patient is able to safely use the walker and the patient?s mobility is sufficiently resolved with the use of the walker and cane has been ruled out.
[2024-05-15 11:31] VITALS: BP 99/67; PULSE 92; RESP 17; TEMP 37.1; O2SAT 94
--- NOTE | 2024-05-15 15:24 | ESPR_ITS ---
Documentation for date of: 05/15/24 Subjective Subjective Interval history: The patient reported doing well this morning. He reported that he was able to work with PT yesterday. He denied any headache, SOB, chest pain, abdominal pain, any fever or chills, nausea or vomiting, any changes in bowel or bladder habit. Exam Vital Signs Temp Pulse Resp BP Pulse Ox O2 Del Method O2 Flow Rate 98.7 F 92 17 99/67 94 L Room Air 2 05/15/24 11:05/15/24 11:05/15/24 11:05/15/24 11:05/15/24 11:05/15/24 11:05/14/24 08:03 Narrative Exam General: No acute distress, Alert and Oriented x 3 HEENT: Moist mucous membranes, oropharynx clear Neck: Supple, No masses, No JVD CVS: S1S2 Regular rate and rhythm, No murmurs, rubs or gallops Lungs: Clear to auscultation with no accessory use, no wheeze no rhonchi Abd: Soft, NT/ND, +BS, no organomegaly Ext: Left leg wrapped under dressing that was mildly soaked in blood near surgical incision site, B/L 1-2+ Peripheral pitting edema Skin: No rash Psych: Appropriate mood and affect Objective Labs 05/15/24 04:48 05/15/24 04:48 Labs: Laboratory Results - last 24 hr 05/15/24 04:48 WBC 6.3 RBC 3.52 L Hgb 11.7 L Hct 34.4 L MCV 98 MCH 33.2 MCHC 34.0 RDW Std Deviation 46.3 H Plt Count 83 L Neut % (Auto) 83 H Lymph % (Auto) 10 Lipscomb % (Auto) 6 Eos % (Auto) 0 Baso % (Auto) 0 Neut # (Auto) 5.2 Lymph # (Auto) 0.6 L Lipscomb # (Auto) 0.4 Eos # (Auto) 0.0 Baso # (Auto) 0.0 Immature Gran # (Auto) 0.06 H Absolute Nucleated RBC 0.00 Immature Gran % 1 H Nucleated RBC % 0 Sodium 133 L Potassium 4.5 Chloride 98 Carbon Dioxide 27.8 Anion Gap 7 BUN 26 H Creatinine 1.2 Estim Creat Clear Calc 75.1 eGFR > 60 BUN/Creatinine Ratio 22 H Glucose 138 H Calculated Osmolality 273 L Calcium 9.5 Corrected Calcium 9.5 Phosphorus 2.5 Magnesium 2.0 Total Bilirubin 3.1 H D AST 161 H ALT 529 H* Alkaline Phosphatase 161 H Total Protein 6.7 Albumin 4.1 Globulin 2.6 Albumin/Globulin Ratio 1.6 Quality Measures Quality Measures none Advance care planning discussed with:: patient Assessment & Plan Assessment Current Active Medications: Generic Name Dose Route Start Last Admin Trade Name Freq PRN Reason Stop Dose Admin Acetaminophen 650 mg 05/12/24 18:25 Acetaminophen 325 Mg Tablet PO 06/11/24 18:24 Q6H PRN PAIN SCALE 1-3 (mild Hydrocodone Bitart/Acetaminophen 1 tab 05/12/24 18:25 05/15/24 11:54 Hydrocodone/Apap 5/325 Tablet PO 05/17/24 18:24 1 tab Q4HR PRN Administration PAIN SCALE 4-6 (Moderate Aspirin 81 mg 05/14/24 21:00 05/15/24 07:59 Aspirin Ec 81 Mg Tabec PO 06/13/24 20:59 81 mg BID PURA Administration Folic Acid 1 mg 05/12/24 21:00 05/15/24 08:00 Folic Acid 1 Mg Tablet PO 05/17/24 20:59 1 mg BID PURA Administration Lorazepam 0.5 mg 05/12/24 18:30 Lorazepam 0.5 Mg Tablet PO 05/17/24 18:29 Q4HR PRN CIWA Score 2-6 Lorazepam 1 mg 05/12/24 18:30 Lorazepam 2 Mg/Ml Vial IV X1 PRN Breakthrough Agitation Lorazepam 1 mg 05/13/24 09:34 Lorazepam 2 Mg/Ml Vial IV 05/17/24 18:29 Q2HR PRN CIWA SCORE 7-14 Rifaximin 550 mg 05/12/24 21:00 05/15/24 07:58 Rifaximin 550 Mg Tablet PO 05/19/24 20:59 550 mg BID PURA Administration Sertraline HCl 50 mg 05/13/24 09:00 05/15/24 07:59 Sertraline Hcl 25 Mg Tablet PO 06/12/24 08:59 50 mg QDAY PURA Administration Thiamine HCl 100 mg 05/12/24 21:00 05/15/24 07:59 Thiamine 100 Mg Tablet PO 05/17/24 20:59 100 mg BID PURA Administration Plan The patient is a 63-year-old male with significant past medical history of hypertension, alcoholic hepatitis and anxiety presented to ED on 05/12/2024 with chief complaint of right ankle pain after a ground-level fall. He reported that he was standing, and felt like his ground was moving, and fell down and was admitted for management of Lt acute fracture of distal tibial shaft and posterior malleolar fracture. #Acute Fracture of distal tibial shaft s/pdistal medial tibial plate. POD 2 #Non displaced Posterior malleolar fracture s/p open reduction internal fixation POD 2 #Ground level fall Pt. complaint of right ankle pain after a ground-level fall. He reported that he was standing, and felt like his ground was moving, and fell down. He tried searching for any holes in the ground but there was none. He denied any lightheadedness, dizziness, SOB, chest pain, LOC, any incontinence during the episode. Rt ankle xray Acute comminuted fractures distal tibial shaft, Rt tibia/fibula x ray Acute fractures distal tibial shaft, Acute fractures proximal fibular shaft without significant displacement. CT ankle Acute fractures through the distal tibial shaft, Nondisplaced posterior malleolar fracture, No ankle dislocation -Pain management, discontinued IV Dilaudid, we will proceed with only oral [place] for now -Dr. Parks on board, reported that he would like to give the patient 1 more day and observe further as he was being discharged to home with home health and there was a concern for bleed from the surgical site, and in the meantime he would possibly change the dressing. -PT recommended home with home health as he has good family support at home. -Started the patient on 81 twice daily aspirin for DVT prophylaxis #Alcohol abuse disorder #Alcoholic hepatitis #transaminitis - trending down Drinks 2-3 beers/day, has previous labs with elevated liver enzymes and bilirubin total bilirubin 4.2, AST 581 and ALT 1265 with ALP 197 during presentation US GB Absent gallbladder, Common bile duct 0.7 cm no stones noted, Mild hepatomegaly fatty infiltration, primary hepatocellular disease pattern no focal liver lesions. -On CIWA protocol -Negative hepatic panel -Monitor closely -Rifaximine 550mg BID -maddery score of 7.9 , so he does not need steroid -Dr. Mares consulted, appreciate reccs, -Liver enzymes trending down, follow-up on liver enzymes #Hypercalcemia- resolved #ABILIO-improved Likely prerenal DDx: Intrarenal vs postrenal Cr 1.9, previous on 2021 was 1.1, today- 1.2 -Maintainance IV NS 150cc/h for 1 L, discontinued -Monitor daily renal panel -Avoid nephrotoxins #Hypoosmolar hypovolemic hyponatremia -On IV NS 150cc/Hr(discontinue ) -Monitor renal panel #Hypertension Currently BP stable -Hold off on home antihypertensive for now, resume as needed #Anxiety -Started home sertraline 50mg daily Health maintenance: Dispo: Admitted for management of Lt acute fracture of distal tibial shaft and posterior malleolar fracture DVT prophylaxis: aspirin 81 bid Diet: cardiac diet CODE: Full code The patient's management plan was discussed with my attending physician MD Valeriy Olmos MD, PGY2 Attending Provider Attestation/Addendum I reviewed labs, imaging, EKG, home medications and prior available records. Face to face evaluation was performed by me. I have personally examined the patient and discussed assessment and plan with the IM team. I reviewed the resident note and agree with the plan with exceptions as below. Right ankle fracture This tibial fracture Transaminitis ABILIO Alcohol abuse Alcohol hepatitis Thrombocytopenia Status post open reduction and internal fixation today PT evaluation: Ordered home health. Discussed with orthopedic surgery: Keep till 05/16 Aspirin 81 mg twice daily for DVT prophylaxis Management of pain as needed Trend LFTs: Downtrending Monitor kidney function: Creatinine improved Maddrey score is 7.9. Not a candidate for corticosteroid. Counseled the patient regarding importance of alcohol cessation Monitor platelet level. No signs of bleeding
--- NOTE | 2024-05-15 15:38 | PD.ANESPROG ---
Documentation for date of: 05/15/24 POST ANESTHESIA NOTE: Patient had general anesthesia and R adductor canal and popliteal nerve blocks for R ankle ORIF on 05/13/24. I saw him earlier today in 350 and he was alert and calm in bed, NAD, on room air, denied any problems from anesthesia. Geremias Truong MD Anesthesia Progress Note Progress Note Most recent Vital Signs: Last Vital Signs Temp 98.7 F 05/15/24 11:31 Pulse 92 05/15/24 11:31 Resp 17 05/15/24 11:31 BP 99/67 05/15/24 11:31 Pulse Ox 94 L 05/15/24 11:31 O2 Del Method Room Air 05/15/24 11:31 O2 Flow Rate 2 05/14/24 08:03
[2024-05-15 16:00] VITALS: BP 108/66; PULSE 68; RESP 13; TEMP 37.2; O2SAT 95
[2024-05-15 20:00] VITALS: BP 111/67; PULSE 76; RESP 19; TEMP 36.8; O2SAT 98
--- NOTE | 2024-05-15 20:11 | PD.IMPROG ---
Documentation for date of: 05/15/24 Subjective Subjective Interval history: patient evaluated total bilirubin 3.1 AST ALT 161, 529 And alk phos 161 Workup for the chronic active hepatitis in progress LFTs improving Exam Vital Signs Temp Pulse Resp BP Pulse Ox O2 Del Method O2 Flow Rate 98.9 F 68 13 108/66 95 Room Air 2 05/15/24 16:00 05/15/24 16:00 05/15/24 16:00 05/15/24 16:00 05/15/24 16:00 05/15/24 16:00 05/14/24 08:03 Objective Labs 05/15/24 04:48 05/15/24 04:48 Labs: Laboratory Results - last 24 hr 05/15/24 04:48 WBC 6.3 RBC 3.52 L Hgb 11.7 L Hct 34.4 L MCV 98 MCH 33.2 MCHC 34.0 RDW Std Deviation 46.3 H Plt Count 83 L Neut % (Auto) 83 H Lymph % (Auto) 10 Stevens % (Auto) 6 Eos % (Auto) 0 Baso % (Auto) 0 Neut # (Auto) 5.2 Lymph # (Auto) 0.6 L Stevens # (Auto) 0.4 Eos # (Auto) 0.0 Baso # (Auto) 0.0 Immature Gran # (Auto) 0.06 H Absolute Nucleated RBC 0.00 Immature Gran % 1 H Nucleated RBC % 0 Sodium 133 L Potassium 4.5 Chloride 98 Carbon Dioxide 27.8 Anion Gap 7 BUN 26 H Creatinine 1.2 Estim Creat Clear Calc 75.1 eGFR > 60 BUN/Creatinine Ratio 22 H Glucose 138 H Calculated Osmolality 273 L Calcium 9.5 Corrected Calcium 9.5 Phosphorus 2.5 Magnesium 2.0 Total Bilirubin 3.1 H D AST 161 H ALT 529 H* Alkaline Phosphatase 161 H Total Protein 6.7 Albumin 4.1 Globulin 2.6 Albumin/Globulin Ratio 1.6 Impressions Impression: # LFTs improving continue present treatment Assessment & Plan A&P Narrative # Abnormal liver functions most likely alcohol induced liver disease however other cause of chronic active hepatitis needs to be ruled out Hepatitis A, B, and C serologies have been negative in the past the first 1 have already been ordered # Right ankle fracture distal tibial fracture requiring ORIF # Essential hypertension # Anxiety 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
[2024-05-16] VITALS: BP 112/77; PULSE 82; RESP 18; TEMP 37; O2SAT 96
[2024-05-16 04:00] VITALS: BP 120/81; PULSE 80; RESP 19; TEMP 36.2; O2SAT 94
[2024-05-16 07:45] VITALS: BP 113/81; PULSE 68; RESP 19; TEMP 36.2; O2SAT 94
[2024-05-16 09:01] LABS: Basophils % (Auto) 0 % (0-2.5); Eosinophils % (Auto) 1 % (0-10); Hematocrit 38.2 % (41.0-53.0); Immature Granulocytes % (Auto) 1 % (0-0); Immature Granulocytes Auto 0.04 Thou/mm3 (0.00-0.00); Lymphocytes # (Auto) 0.8 Thou/mm3 (1.0-4.8); Lymphocytes % (Auto) 19 % (10-50); Mean Corpuscular Hemoglobin 33.1 pg (25.0-35.0); Mean Corpuscular Volume 97 fL (80-100); Monocytes # (Auto) 0.3 Thou/mm3 (0.0-0.8); Monocytes % (Auto) 6 % (0-12); Neutrophils % (Auto) 73 % (37-80); Nucleated Red Blood Cell % 0 /100 WBC (0); Platelet Count 92 Thou/mm3 (140-440); RDW Standard Deviation 46.5 fL (35.1-43.9); Red Blood Count 3.93 Miln/mm3 (4.50-5.90); White Blood Count 4.1 Thou/mm3 (3.8-10.6)
[2024-05-16 09:09] VITALS: PULSE 75; RESP 18; RESP 95
[2024-05-16] MEDS: SERTRALINE HCL 25 MG TABLET 50 MG PO (09:09)
[2024-05-16] MEDS: FOLIC ACID 1 MG TABLET PO (09:09)
[2024-05-16] MEDS: ASPIRIN EC 81 MG TABEC PO (09:09)
[2024-05-16] MEDS: rifaximin 550 MG TABLET PO (09:09)
[2024-05-16] MEDS: THIAMINE 100 MG TABLET PO (09:09)
[2024-05-16 09:21] LABS: Alanine Aminotransferase 497 U/L (10-49); Albumin, Serum 4.1 gm/dL (3.4-4.8); Albumin/Globulin Ratio 1.5 (1.2-2.2); Alkaline Phosphatase 150 U/L (46-116); Anion Gap 9 (7-16); Aspartate Amino Transferase 178 U/L (0-34); BUN/Creatinine Ratio 24 Ratio (12-20); Bilirubin,Total 3.1 mg/dL (0.3-1.2); Blood Urea Nitrogen 24 mg/dL (9-23); Calcium 9.5 mg/dL (8.3-10.6); Calcium (Corrected) 9.5 mg/dL (8.5-10.1); Carbon Dioxide 29.5 mMol/L (20.0-31.0); Chloride 96 mMol/L (98-107); Estimated Creatinine Clearance 90.1 mL/min (>60); Globulin 2.7 gm/dL (2.3-3.5); Glucose 217 mg/dL (74-106); Magnesium 1.7 mg/dL (1.6-2.6); Osmolality,Calculated 279 (275-295); Phosphorous 2.2 mg/dL (2.4-5.1); Potassium 3.6 mMol/L (3.4-5.1); Sodium 134 mMol/L (136-145); Total Protein 6.8 gm/dL (5.7-8.2); eGFR > 60 See Note
[2024-05-16] MEDS: HYDROcodone/APAP 5/325 TABLET 1 TAB PO (10:35)
[2024-05-16 11:46] VITALS: BP 127/73; PULSE 77; RESP 18; TEMP 36.2; O2SAT 96
[2024-05-16 11:59] VITALS: BMI 29.8
--- NOTE | 2024-05-16 14:47 | PD.RESDS ---
Planned Discharge Date 05/16/24 DS: Providers Provider Date of admission: 05/12/24 18:25 Primary care physician: Raina Serna MD Admitting Provider: Carri Nair MD Attending Provider on Admission: Gaston Petersen MD Consults: 05/12/24 18:34 Consult to Orthopedic Stat Comment: Consulting Provider: Velasquez Segal 05/12/24 18:54 Consult to Gastroenterology Routine Comment: Elevated liver enzymes Consulting Provider: Meliton Mares 05/13/24 10:31 Referral Physical Therapy Routine Comment: Physician Instructions: 05/13/24 12:01 Referral Physical Therapy Routine Comment: Gait Training Physician Instructions: Instructions: right leg non weight bear Attending Provider on DC: Valeriy Mcmullen MD Discharging Provider: Valeriy Mcmullen MD DS: Diagnosis Problem List Completed Was Problem List Reviewed/Reconciled?: Yes Hospital Course Hospital Course Hospital course: The patient is a 63-year-old male with significant past medical history of hypertension, alcoholic hepatitis and anxiety presented to ED on 05/12/2024 with chief complaint of right ankle pain after ground-level fall was found to have acute fracture of distal tibial shaft and nondisplaced posterior malleolus fracture and is s/p distal medial tibial plate and open reduction internal fixation of posterior malleolar fracture. Rt ankle xray Acute comminuted fractures distal tibial shaft, Rt tibia/fibula x ray Acute fractures distal tibial shaft, Acute fractures proximal fibular shaft without significant displacement. CT ankle Acute fractures through the distal tibial shaft, Nondisplaced posterior malleolar fracture, No ankle dislocation. This morning, he reported doing well. He is dressing over right leg was changed. His discharge plan was discussed with him. He agreed with the plans. He was discharged with following recommendations:- Please follow-up with your PCP within 1 week of discharge Please follow-up with orthopedics Dr Segal within 2-week of discharge. You have been started on: -Tylenol 500 Mg up to 4 times per day as needed for pain -Aspirin 81 Mg twice daily for 12 more days -Folic acid 1 mg daily for 10 days -Thiamine 100 Mg twice daily for 10 days -Hydrocodone-acetaminophen 5-325 mg every 6 hourly as needed for breakthrough pain -Continue taking all other medicines as prescribed before -Recommended to stop alcohol use -Recommended to return back to emergency department if your symptoms persist or does not improve. Problems: #Acute Fracture of distal tibial shaft s/pdistal medial tibial plate. POD 3 #Non displaced Posterior malleolar fracture s/p open reduction internal fixation POD 3 #Ground level fall #Alcohol abuse disorder #Alcoholic hepatitis #transaminitis - trending down #Hypercalcemia- resolved #ABILIO-improved #Hypoosmolar hypovolemic hyponatremia #Hypertension #Anxiety The patient's discharge plan was discussed with my attending physician MD Valeriy Olmos MD, PGY2 Time Spent with Patient Time attestation: Total time spent providing and/or coordinating discharge services: Greater than 35 minutes Home Health Home Health Referral Orders: 05/15/24 10:48 Home Health Referral Routine Reason For Exam: Home PT Home-Bound The patient must either because of illness or injury, need the aid of supportive devices such as crutches, canes, wheelchairs, and walkers; the use of special transportation; or the assistance of another person in order to leave their place of residence; OR have a condition such that leaving his or her home is medically contraindicated. In addition, the patient also meets the following criteria: patient is normally unable to leave the home and leaving home requires considerable taxing effort. Addendum to Home Health Certification Practitioner's Certification: I certify that the patient has been under my care in the hospital and the care of attending physician (see below). We had a [id number] encounter on (see date below). My clinical findings indicate that the patient is home bound per the above criteria and the Home Health Services noted in these orders are medically necessary. The primary reason for the [id number] encounter is related to the fact that the patient requires home health services. Date Certifying [id number] Physician Encounter: 05/12/24 Physician's Name who will Assume Oversight for Services: Raina Serna Physician's Phone No.who will Assume Oversight for Service: [facility] [place] - Community Resources: Yes PT to Evaluate: Yes PT to evaluate and provide a treatmnet plan to increase patient's mobility and strength. Wound Care: No IV Therapy: No RN Safety Evaluation: Yes RN to evaluate and create a plan of care that will produce positive outcomes. Palliative Treatment: No Palliative treatment and evaluate the need for hospice. Home Health Aide - Personal Care: Yes Home Health Aide to assist with any ADL's. Exam Vital Signs Temp Pulse Resp BP Pulse Ox O2 Del Method O2 Flow Rate 97.2 F 77 18 127/73 96 Room Air 2 05/16/24 11:46 05/16/24 11:46 05/16/24 11:46 05/16/24 11:46 05/16/24 11:46 05/16/24 11:46 05/14/24 08:03 Narrative Exam General: No acute distress, Alert and Oriented x 3 HEENT: Moist mucous membranes, oropharynx clear Neck: Supple, No masses, No JVD CVS: S1S2 Regular rate and rhythm, No murmurs, rubs or gallops Lungs: Clear to auscultation with no accessory use, no wheeze no rhonchi Abd: Soft, NT/ND, +BS, no organomegaly Ext: Rt leg wrapped under clean dressing Skin: No rash Psych: Appropriate mood and affect Discharge Plan Plan Patient Disposition: Home w/HOME HEALTH Disposition Comment: PT/ OT and FWW Care Plan Goals: Please follow-up with your primary care provider within 1 week of discharge Please follow-up with orthopedics Dr Segal on Tuesday May 21, 2024 at 3:00 PM. Home health will call you within 48 hours. DO not allow home health to remove dressing. You have been started on: -Tylenol 500 Mg up to 4 times per day as needed for pain -Aspirin 81 Mg twice daily for 12 more days -Folic acid 1 mg daily for 10 days -Thiamine 100 Mg twice daily for 10 days -Hydrocodone-acetaminophen 5-325 mg every 6 hourly as needed for breakthrough pain -Continue taking all other medicines as prescribed before -Recommended to stop alcohol use -Recommended to return back to emergency department if your symptoms persist or does not improve. Prescriptions/Referrals Prescriptions/Med Rec: New aspirin [Ecotrin Low Strength] 81 mg Tablet,Delayed Release (Dr/Ec) 81 mg PO BID 12 Days Qty: 24 0RF thiamine mononitrate (vit B1) 100 mg Tablet 100 mg PO BID 10 Days Qty: 20 0RF folic acid 1 mg Tablet 1 mg PO QDAY 10 Days Qty: 10 0RF hydrocodone-acetaminophen 5-325 mg tablet 1 tab PO Q6H MDD 4 PRN (Reason: breakthrough pain, severe) Qty: 20 0RF acetaminophen 500 mg tablet 500 mg PO Q6H PRN (Reason: pain) Qty: 30 0RF Continued lisinopril 20 mg Tablet 20 mg PO DAILY sertraline 50 mg Tablet 50 mg PO QDAY Xifaxan 550 mg tablet 550 mg PO BID Patient Comments: TAKE 1 TABLET BY MOUTH TWO TIMES A DAY atenolol 50 mg Tablet 50 mg PO QDAY Referrals: Raina Serna MD [Primary Care Provider] - Velasquez Segal MD [Physician] - Patient/Caregiver Discharge Instructions Discharge Activity: as per physical therapy Education Materials: Alcohol Addiction, ED Fracture, Lower Extremity Print Language: Korean Stand Alone Forms: Nannette Award Info., Patient Portal Info Letter Discharge Order Discharge Orders: Discharge (Routine); Ordered 05/16/24 Ordered By: Valeriy Mcmullen Quality Discharge Quality Measures VTE prophylaxis Attestestation MD Attestation I reviewed labs, imaging, EKG, home medications and prior available records. Face to face evaluation was performed by me. I have personally examined the patient and discussed assessment and plan with the IM team. I reviewed the resident note and agree with the plan with exceptions as below. Right ankle fracture This tibial fracture Transaminitis ABILIO Alcohol abuse Alcohol hepatitis Thrombocytopenia Status post open reduction and internal fixation today PT evaluation: Ordered home health. Discussed with orthopedic surgery: Keep till 05/16 Aspirin 81 mg twice daily for DVT prophylaxis Changed dressing orthopedic surgery. Follow-up with orthopedic surgery in 2 weeks Management of pain as needed Trend LFTs: Downtrending Monitor kidney function: Creatinine improved Maddrey score is 7.9. Not a candidate for corticosteroid. Counseled the patient regarding importance of alcohol cessation Monitor platelet level: Stable. No signs of bleeding Time spent is 40 minutes. More than 50% of the time was spent on patient education and coordination of care.
[2024-05-16 15:49] VITALS: BP 124/82; PULSE 86; RESP 18; TEMP 36.2; O2SAT 96
--- NOTE | 2024-05-17 12:16 | PC.CC ---
Addendum entered by Ursula Vu RN 05/21/24 10:51: SOC was on 05/17/24 Addendum entered by Katerin Nichols RN 05/17/24 14:29: Pending insurance auth and start of care date. Addendum entered by Katerin Nichols RN 05/17/24 12:17: [facility] accepted the pt. Booked [facility]. Pending start of care date. Original Note: HH referral sent on [facility]. Awaiting responses. Pending Start of care date.
[2024-05-23 06:56] LABS: ANA Screen, IFA NEGATIVE (NEGATIVE); Alpha-1-Antitrypsin* 175 mg/dL (83-199); Ceruloplasmin* 29 mg/dL (14-30); Copper* 122 mcg/dL (70-175); Mitochondrial Ab NEGATIVE (NEGATIVE)
== END 2024-05-16 16:00 | disposition home health service (06) | DRG 493 ==
LOC: SERX 14:33 → SERHOLD 19:25 → S3NX 05-13 00:12
PROVIDERS: Orthopaedic Surgery; Specialist; Student in an Organized Health Care Education/Training Program; Admitting Provider Student in an Organized Health Care Education/Training Program; Emergency Provider Emergency Medicine; PCP Internal Medicine; Visit Provider Student in an Organized Health Care Education/Training Program
PROC: 0QSG04Z Reposition Right Tibia with Internal Fixation Device, Open Approach (ICD-10-PCS; principal; 2024-05-13 09:00)
DX: S82.241A Displaced spiral fracture of shaft of right tibia, initial encounter for closed fracture (principal); E87.1 Hypo-osmolality and hyponatremia; N17.9 Acute kidney failure, unspecified; D69.6 Thrombocytopenia, unspecified; E78.00 Pure hypercholesterolemia, unspecified; E83.52 Hypercalcemia; E86.1 Hypovolemia; F10.10 Alcohol abuse, uncomplicated; F41.1 Generalized anxiety disorder; I10 Essential (primary) hypertension; K70.10 Alcoholic hepatitis without ascites; K76.0 Fatty (change of) liver, not elsewhere classified; Y90.0 Blood alcohol level of less than 20 mg/100 ml; S82.891A Other fracture of right lower leg, initial encounter for closed fracture; F17.210 Nicotine dependence, cigarettes, uncomplicated; Z90.49 Acquired absence of other specified parts of digestive tract; Z96.652 Presence of left artificial knee joint; Z79.899 Other long term (current) drug therapy; W18.30XA Fall on same level, unspecified, initial encounter; Y92.322 Soccer field as the place of occurrence of the external cause
CPT/HCPCS: 36415; 71045; 73590; 73610; 73700; 76000; 76705; 80053; 80061; 80069; 80074; 80320; 80329; 81001; 82103; 82105; 82390; 82525; 83036; 83540; 83550; 83735; 84100; 84443; 85025; 85610; 85730; 86038; 86255; 93005; 96361; 96374; 96375; 97162; 99285; A4217; A4649; C1713; C1769; J0689; J0690; J1100; J1580; J1643; J2250; J2270; J2371; J2405; J2704; J2795; J3010; J3490; J7030; J7120; P9045; A9270; G0480; J1805

== ENCOUNTER 2024-09-07 10:21 | Emergency (ER) | payer MEDICARE, MEDICAID, SELFPAY ==
[2024-09-07 10:21] VITALS: BMI 28.0
[2024-09-07 10:57] VITALS: BP 128/80; PULSE 60; RESP 20; TEMP 36.6; O2SAT 97
--- NOTE | 2024-09-07 11:02 | XR_ITS ---
EXAMINATION: Ankle, right 3 views . Technique: Ankle AP, oblique, lateral 3 views Date and time of exam: September 07, 2024 1111 hours Comparison May 13, 2024 INDICATIONS: Acute fractures through the distal tibial shaft and posterior malleolus May 12, 2024, postop reduction internal fixation fractures May 13, 2024, patient states ankle pain 3 days FINDINGS: Significant partial healing fractures distal tibial shaft with stable and satisfactory alignment Orthopedic hardware satisfactory position IMPRESSION: Significant partial healing fractures distal tibial shaft with stable and satisfactory alignment
--- NOTE | 2024-09-07 11:03 | PD.EDRME ---
Rapid Medical Screening Exam RME Arrival date/time: 09/07/24 10:21 64-year-old male with a history of hypertension presents to the emergency room with a chief complaint of right lower extremity swelling and pain. Patient had ankle surgery done on May 13, 2024. Patient states for the last 5 days his swelling and pain have increased I have greeted and performed a focused initial assessment of this patient. A comprehensive ED assessment and evaluation of the patient, analysis of all test results, and completion of the medical decision making process will be conducted by additional ED providers. Chief Complaint: Ankle/Foot Injury Time Seen by Provider: 09/07/24 10:40 Vital signs: Vital Signs Temperature 98 F 09/07/24 10:57 Pulse Rate 60 09/07/24 10:57 Respiratory Rate 20 09/07/24 10:57 Blood Pressure 128/80 09/07/24 10:57 Pulse Oximetry (%) 97 09/07/24 10:57 Oxygen Delivery Method Room Air 09/07/24 10:57 Vital signs reviewed by provider: Yes
[2024-09-07 11:36] LABS: Basophils # (Auto) 0.1 Thou/mm3 (0.0-0.2); Basophils % (Auto) 1 % (0-2.5); Eosinophils # (Auto) 0.2 Thou/mm3 (0.0-0.5); Eosinophils % (Auto) 2 % (0-10); Hematocrit 44.9 % (41.0-53.0); Hemoglobin 16.2 g/dL (13.5-16.0); Immature Granulocytes % (Auto) 1 % (0-0); Immature Granulocytes Auto 0.04 Thou/mm3 (0.00-0.00); Lymphocytes # (Auto) 1.7 Thou/mm3 (1.0-4.8); Lymphocytes % (Auto) 19 % (10-50); Mean Corpuscular HGB Conc 36.1 g/dl (31.0-37.0); Mean Corpuscular Hemoglobin 31.5 pg (25.0-35.0); Mean Corpuscular Volume 87 fL (80-100); Monocytes # (Auto) 0.4 Thou/mm3 (0.0-0.8); Monocytes % (Auto) 5 % (0-12); Neutrophils # (Auto) 6.4 Thou/mm3 (1.8-7.7); Neutrophils % (Auto) 73 % (37-80); Nucleated Red Blood Cell % 0 /100 WBC (0); Platelet Count 127 Thou/mm3 (140-440); RDW Standard Deviation 41.6 fL (35.1-43.9); Red Blood Count 5.15 Miln/mm3 (4.50-5.90); White Blood Count 8.8 Thou/mm3 (3.8-10.6)
[2024-09-07 11:53] LABS: Alanine Aminotransferase 46 U/L (10-49); Albumin, Serum 4.6 gm/dL (3.4-4.8); Albumin/Globulin Ratio 1.5 (1.2-2.2); Alkaline Phosphatase 172 U/L (46-116); Anion Gap 6 (7-16); Aspartate Amino Transferase 37 U/L (0-34); BUN/Creatinine Ratio 11 Ratio (12-20); Bilirubin,Total 1.2 mg/dL (0.3-1.2); Blood Urea Nitrogen 11 mg/dL (9-23); Calcium 9.4 mg/dL (8.3-10.6); Calcium (Corrected) 9.4 mg/dL (8.5-10.1); Carbon Dioxide 28.9 mMol/L (20.0-31.0); Chloride 104 mMol/L (98-107); Estimated Creatinine Clearance 91.3 mL/min (>60); Globulin 3.1 gm/dL (2.3-3.5); Glucose 110 mg/dL (74-106); Osmolality,Calculated 277 (275-295); Potassium 4.3 mMol/L (3.4-5.1); Sodium 139 mMol/L (136-145); Total Protein 7.7 gm/dL (5.7-8.2); eGFR > 60 See Note
--- NOTE | 2024-09-07 12:57 | PD.EDANKLE ---
Lower Extremity Injury RME/HPI General Chief Complaint: Ankle/Foot Injury Stated Complaint: R ANKLE PAIN WITH SWELLING X5 DAYS Time Seen by Provider: 09/07/24 10:40 Arrival date/time: 09/07/24 10:21 RME / HPI RME / HPI Narrative: 64-year-old male with a history of hypertension presents to the emergency room with a chief complaint of right lower extremity swelling and pain. Patient had ankle surgery done on May 13, 2024. Patient states for the last 5 days his swelling and pain have increased. Denies any shortness of breath denies any redness denies any other complaints. Denies any fever denies any other complaints. Patient is ambulatory with cane Related Data Home Medications ?Medication ?Instructions ?Recorded ?Confirmed lisinopril 20 mg tablet 20 mg PO DAILY 05/09/18 05/12/24 sertraline 50 mg tablet 50 mg PO QDAY 06/20/18 05/12/24 atenolol 50 mg tablet 50 mg PO QDAY 03/18/22 05/12/24 rifaximin 550 mg tablet (Xifaxan) 550 mg PO BID 05/12/24 05/12/24 Previous Rx's ?Medication ?Instructions ?Recorded acetaminophen 500 mg tablet 500 mg PO Q6H PRN pain #30 tabs 05/15/24 hydrocodone 5 mg-acetaminophen 325 1 tab PO Q6H PRN breakthrough 05/15/24 mg tablet pain, severe #20 tabs tramadol 37.5 mg-acetaminophen 325 1 tab PO BID PRN pain #20 tabs 09/07/24 mg tablet Allergies Allergy/AdvReac Type Severity Reaction Status Date / Time No Known Allergies Allergy Verified 09/07/24 10:24 Review of Systems Review of Systems Narrative Review of Systems: Review of system reviewed and within normal limits except mentioned in HPI ED Exam Narrative Physical exam: VITAL SIGNS: Reviewed. GENERAL APPEARANCE: Alert and interactive, follows commands, no acute distress, HEAD AND FACE: Non-traumatic. ENT: PERRL, pink conjunctivitis, eyelid no trauma, Mucous membrane moist. NECK: Supple, nontender, no nuchal rigidity. CHEST: No tenderness, no crepitus, no paradoxical movement, no retractions. LUNGS: Clear, well ventilated, symmetric, no rales, no wheezing, no ronchi, no stridor, good breath sounds bilaterally. HEART: Regular rate, regular rhythm, no murmur, no gallops. ABDOMEN: Soft, positive bowel sounds, nondistended, no guarding, nontender, no rebound, no masses, RECTAL: Deferred. GENITAL: Deferred. NEUROLOGICAL: Gross motor function intact sensory function intact, Appropriate for age. MUSCULOSKELETAL: low back nontender, full range of motion. EXTREMITIES: +1 swelling right lower extremity no redness no tenderness to the calf muscle, full range of motion. Distal neurovascular status intact SKIN: Color pink, dry, no rash, no lacerations, no abrasions, no contusions. LYMPHATICS: Deferred. Course Quality Measures none Orders Category Date Time Status XR ankle comp RT min 3V Stat Exams 09/07/24 11:02 Completed CBC Stat Lab 09/07/24 11:29 Completed CMP [Comprehensive Metabolic Panel] Stat Lab 09/07/24 11:29 Completed Furosemide [Lasix] Med 09/07/24 13:03 Discontinued 40 mg PO X1 ONE Ketorolac Inj [Toradol Inj] Med 09/07/24 13:03 Discontinued 30 mg IM X1 ONE Vital Signs Vital signs: Vital Signs Temperature 98 F 09/07/24 10:57 Pulse Rate 60 09/07/24 10:57 Respiratory Rate 20 09/07/24 10:57 Blood Pressure 128/80 09/07/24 10:57 Pulse Oximetry (%) 97 09/07/24 10:57 Oxygen Delivery Method Room Air 09/07/24 10:57 Extremity Injury, Lower MDM Narrative MDM Narrative:: 64-year-old male with a history of hypertension presents to the emergency room with a chief complaint of right lower extremity swelling and pain. Patient had ankle surgery done on May 13, 2024. Patient states for the last 5 days his swelling and pain have increased. Denies any shortness of breath denies any redness denies any other complaints. Denies any fever denies any other complaints. Patient is ambulatory with cane Patient's laboratory workup all came back unremarkable. Patient's x-ray of the leg showed fracture healing with multiple screws and plate no loosening noted. Results discussed with the patient. Patient was advised to wear compression stocking in the morning and remove it during the night and elevate the leg there is no need to keep antibiotic or do further imaging or workup at this time. Patient appears nontoxic and hemodynamically stable. Patient discharged home and instructed to follow-up with primary care provider in 24 to 48 hours. Instructed to return to the emergency department immediately if worsening of symptoms Patient data External records reviewed:: None Clinical information provided by:: none Social determinants that could affect healthcare access:: none Patient has the following chronic illnesses:: None How is presenting disease/condition affected by chronic disease/condition?: no chronic disease Evaluation data The following diagnostics were reviewed and interpreted by me:: lab results and radiology exam(s) Lab and/or radiology exams considered but not ordered:: None Interpretation Summary: See results MD Medications / Prescriptions Medications or Prescriptions considered but not ordered:: None Medication administrations:: Medication Administration History Discontinued Medications Furosemide (Furosemide 40 Mg Tablet) 40 mg PO X1 ONE Stop: 09/07/24 13:04 Last Admin: 09/07/24 13:08 Dose: Not Given Documented By: TIFFANY Non-Admin Reason: Patient Refused Ketorolac Tromethamine (Ketorolac Inj 60 Mg/2 Ml Vial) 30 mg IM X1 ONE Stop: 09/07/24 13:04 Last Admin: 09/07/24 13:09 Dose: Not Given Documented By: TIFFANY Non-Admin Reason: Patient Refused Toradol IM and Lasix Consultations Consultation(s) initiated? (list below): No Diagnosis Extremity Injury, Lower Differential Diagnosis: ankle sprain and strain and other Most likely diagnosis given after review of the tests above:: Leg swelling, chronic leg pain status post ORIF tibia fracture Admission Indicated Admission indicated?: not indicated Admission Request Was there a request for admission?: No Disposition Plan Disposition Plan: Discharge Discharge Attestation Discharge Attestation: The patient and all family members were given an opportunity to ask questions and understood the discharge instructions. Discharge instructions specifically effects, indications for sooner follow up or return to the emergency department, and the expected course of current diagnosis. Patient condition: Stable Discharge Plan Plan Patient Disposition: HOME (Self Care) Discharge Disposition comment: Stable Prescriptions/Referrals Prescriptions/Med Rec: New tramadol-acetaminophen 37.5-325 mg tablet 1 tab PO BID PRN (Reason: pain) Qty: 20 0RF No Action lisinopril 20 mg Tablet 20 mg PO DAILY sertraline 50 mg Tablet 50 mg PO QDAY Xifaxan 550 mg tablet 550 mg PO BID Patient Comments: TAKE 1 TABLET BY MOUTH TWO TIMES A DAY hydrocodone-acetaminophen 5-325 mg tablet 1 tab PO Q6H MDD 4 PRN (Reason: breakthrough pain, severe) Qty: 20 0RF acetaminophen 500 mg tablet 500 mg PO Q6H PRN (Reason: pain) Qty: 30 0RF atenolol 50 mg Tablet 50 mg PO QDAY Referrals: Esteban Arce MD [Primary Care Provider] - In 1 week Problem List Clinical Impression: Chronic leg pain, Lower extremity edema, Status post closed fracture of right tibia Patient/Caregiver Discharge Instructions Discharge Activity: activity as tolerated Education Materials: ED Chronic Pain Additional Instructions: Thank you for the opportunity for serving you today. You are stable for discharged . You are advised to: Follow-up with your PCP in 1 to 2 days Return to ED for worsening of symptoms Elevate your leg as instructed Wear compression stocking in the morning remove it prior to going back to sleep Print Language: Swedish Stand Alone Forms: Nannette Award Info., Patient Portal Info Letter RICHA/MARIBEL Supervising Physician RICHA/MARIBEL Supervising Physician: MD Dre
== END 2024-09-07 13:04 | disposition home or self-care (01) ==
PROVIDERS: Nurse Practitioner Family; Emergency Provider Family Medicine; PCP Family Medicine
DX: S82.301D Unspecified fracture of lower end of right tibia, subsequent encounter for closed fracture with routine healing (principal); X58.XXXD Exposure to other specified factors, subsequent encounter
CPT/HCPCS: 36415; 73610; 80053; 85025; 99283

== ENCOUNTER 2024-12-13 09:00 | Outpatient (RCR) | payer MEDICARE, MEDICAID, SELFPAY ==
--- NOTE | 2024-12-03 10:36 | PTNOTE_ITS ---
PT OP Initial Eval Patient Information Outpatient Physical Therapy Treatment Date: 12/03/24 Visit Reasons: RT FX TIBIA Medical Diagnosis: M84.461S Treatment Dx #1: R lower LE pain Treatment Dx #2: Decreased R ankle ROM Start of Care: 12/03/24 Date of Onset: 05/13/24 Smoking Status Smoking Status: Light (< 1 pack/day) Cessation Counseling Provided: VENESSA was advised that quitting smoking is the single most important factor to protect the health of themselves and their family. Discussed the benefits of quitting smoking with patient. Encouraged patient to quit smoking and provided Cessation assistance materials and resources. Tobacco Use: Cigarette Years smoked: 40 Are you interested in quitting?: Yes Would you like additional Smoking Cessation Counseling?: No Initial Assessment Subjective: Pt is 64 yr old male s/p R tibial ORIF. Pt reports pain and swelling of the lower leg with walking. He is mowing his yard in parts with rest breaks and walking about 8-10 mins and then sits to rest and the calf gets tight. PLOF: pt was independent with functional mobility in the community without assistive device PMH: HTN Imaging: Xrays in EMR Pt goal: less pain to walk further, strengthen the LE, do yardwork Objective: R ankle AROM: DF: 5 deg ?Plantarflexion: to 42 deg Inv: 25 deg Eversion: neutral Girth: R: 60 cm, L: 56 cm Strength: Ankle DF 4-/5, PF: 4-/5 Heel raise B slowly x1 TTP: moderate of incision scar Sensation: diminished to light touch of R foot Gait: antalgic with decreased WB and push off. Assessment: Pt presentation consistent with referring Dx. Pt has limited ankle DF ROM ? and gastroc tightness with decreased ankle PF strength with heel raises. ? Pt ambulates with antalgic gait pattern and decreased step length. Eval followed by HEP. Short Term and Fleet Coordinator Goals 1. Independent with HEP ? 2. Improved DF ROM to 10 deg and PF to 50 deg ? 3. Decreased TTP from mod to min of incision scars ? 4. Improved ambulatory distance to community distances with symmetrical gait pattern Treatment Plan ?1. Manual therapy ? 2. Therex ? 3. Modalities as indicated, moist heat, ice, estim Frequency and Duration: 2x a week for 18 visits plus the evaluation Certification Dates: 12/03/24 to 03/03/25 Procedure Charges OP PT Eval Mod Complex 30 minutes: Yes
--- NOTE | 2024-12-06 09:30 | PT.ODAYNRPT ---
PT Outpatient Daily Note OP Daily Note Outpatient Physical Therapy Treatment Date: 12/06/24 Visit Reasons: RT FX TIBIA Subjective: Same as time of evaluation Objective: See F/S for therex Assessment: Low pain of R tibia with heel raises Plan: Continue per POC Length of Time (minutes) of Treatment: 30 Minutes Procedure Charges Therapeutic Exercise 30 minutes: Yes
--- NOTE | 2024-12-11 09:34 | PT.ODAYNRPT ---
PT Outpatient Daily Note OP Daily Note Outpatient Physical Therapy Treatment Date: 12/11/24 Visit Reasons: RT FX TIBIA Subjective: Pt reports R leg is doing ok, pain is about the same. Objective: Please see flow sheet for ther ex list. Assessment: Pt demonstrates out toeing gait and position with stretches, requires verbal cues for correction. Plan: Continue with POC. Length of Time (minutes) of Treatment: 30 Minutes CONTROL ROOM OPERATOR Service Modifier Method I: Divide the number of min of care provided by the CONTROL ROOM OPERATOR/RICHMOND by the total min of care provided then multiply by 100. If greater than 11 percent modifier is required. Method II: Divide the total time of care provided to patient by 10 (round to the nearest whole number) and add 1 min. to set the minimum time requirement. If treatment total was 60 min., then 10% of 6 min PT CQ modifier applied: CQ Modifier applied Procedure Charges Therapeutic Exercise 30 minutes: Yes
--- NOTE | 2024-12-13 09:42 | PT.ODAYNRPT ---
PT Outpatient Daily Note OP Daily Note Outpatient Physical Therapy Treatment Date: 12/13/24 Visit Reasons: RT FX TIBIA Subjective: Pt reports Rt ankle stiffness and calf tightness Objective: See F/S for therex MT: STM scar x 7 min Assessment: Pt tolerated exercises well with no increase in pain along with minimal verbal cueing needed to correct from, able to self correct. Plan: Continue with POC Length of Time (minutes) of Treatment: 30 Minutes Procedure Charges Therapeutic Exercise 30 minutes: Yes
== END 2024-12-16 23:59 | disposition home or self-care (01) ==
LOC: CPTX 09:00
PROVIDERS: PCP Internal Medicine; Referring Provider Internal Medicine; Visit Provider Internal Medicine
DX: M79.661 Pain in right lower leg (principal); R60.0 Localized edema; M84.461D Pathological fracture, right tibia, subsequent encounter for fracture with routine healing; Z71.6 Tobacco abuse counseling; F17.210 Nicotine dependence, cigarettes, uncomplicated; I10 Essential (primary) hypertension
CPT/HCPCS: 97110; 97162

== ENCOUNTER 2025-01-08 09:30 | Outpatient (RCR) | payer MEDICARE, MEDICAID, SELFPAY ==
--- NOTE | 2024-12-20 09:26 | PTNOTE_ITS ---
PT Outpatient Daily Note OP Daily Note Outpatient Physical Therapy Treatment Date: 12/20/24 Visit Reasons: fx right tibia Subjective: Pt reports leg is doing ok, still has pain with increase activity. Objective: Please see flow sheet for ther ex list. Assessment: Pt demonstrates decrease step height and heel strike with increase fatigue., Plan: continue with poc. Length of Time (minutes) of Treatment: 30 Minutes DIRECTOR SCHOOL FOR [employer]IND Service Modifier Method I: Divide the number of min of care provided by the DIRECTOR SCHOOL [employer] BLIND/EMBEDDED DEVELOPER by the total min of care provided then multiply by 100. If greater than 11 percent modifier is required. Method II: Divide the total time of care provided to patient by 10 (round to the nearest whole number) and add 1 min. to set the minimum time requirement. If treatment total was 60 min., then 10% of 6 min PT CQ modifier applied: CQ Modifier applied Procedure Charges Therapeutic Exercise 30 minutes: Yes
--- NOTE | 2024-12-25 09:17 | PT.ODAYNRPT ---
PT Outpatient Daily Note OP Daily Note Outpatient Physical Therapy Treatment Date: 12/25/24 Visit Reasons: fx right tibia Subjective: Pt report ankle is feeling better, notices he is moving with more ease and swelling is mild. Pt content to share that he is able to go up and down stairs at home now, was something that he was avoiding since his initial fx. Objective: Please see flow sheet for ther ex list. Assessment: Pt instructed on step up exercise to work on quad strength and to simulate navigating steps at home. Plan: Continue with poC. Length of Time (minutes) of Treatment: 30 Minutes AUTOMOTIVE ENGINEERING TECHNICIAN Service Modifier Method I: Divide the number of min of care provided by the AUTOMOTIVE ENGINEERING TECHNICIAN/RICHMOND by the total min of care provided then multiply by 100. If greater than 11 percent modifier is required. Method II: Divide the total time of care provided to patient by 10 (round to the nearest whole number) and add 1 min. to set the minimum time requirement. If treatment total was 60 min., then 10% of 6 min PT CQ modifier applied: CQ Modifier applied Procedure Charges Therapeutic Exercise 30 minutes: Yes
--- NOTE | 2024-12-27 09:23 | PT.ODAYNRPT ---
PT Outpatient Daily Note OP Daily Note Outpatient Physical Therapy Treatment Date: 12/27/24 Visit Reasons: fx right tibia Subjective: Pt reports ankle is doing better has been using stairs at home now and is planning to start walking not that the weather is nicer. Objective: Please see flow sheet for ther ex list. Assessment: Pt demonstrates wiht decrease c/o pain allowing for intervention progression in clinic. Plan: Continue with poC. Length of Time (minutes) of Treatment: 30 Minutes FEATHER MIXER Service Modifier Method I: Divide the number of min of care provided by the FEATHER MIXER/HAT FORMING MACHINE OPERATOR by the total min of care provided then multiply by 100. If greater than 11 percent modifier is required. Method II: Divide the total time of care provided to patient by 10 (round to the nearest whole number) and add 1 min. to set the minimum time requirement. If treatment total was 60 min., then 10% of 6 min PT CQ modifier applied: CQ Modifier applied Procedure Charges Therapeutic Exercise 30 minutes: Yes
--- NOTE | 2025-01-03 10:29 | PT.ODAYNRPT ---
PT Outpatient Daily Note OP Daily Note Outpatient Physical Therapy Treatment Date: 01/03/25 Visit Reasons: fx right tibia Subjective: Pt reports he noticed a small bump on the front of the tibial mid way where his scar is. As per pt he noticed it a few days ago but it is getting bigger. Pt reports it is numb in that area. Objective: Please see flow sheet for ther ex list. Assessment: PTOR assessed pt dital tibia where complaint of bump, pt denies TTP or pain. Pt able to perform interventions assigned with no complaints. Pt recommend that if bump continues to grow, if it becomes painful red, swollen or tender to follow up with doctor. Plan: Continue with poC. Length of Time (minutes) of Treatment: 30 Minutes Procedure Charges Therapeutic Exercise 30 minutes: Yes
--- NOTE | 2025-01-08 10:51 | PT.ODS1RPT ---
PT OP Progress/Discharge Note Date of Service: 01/08/25 Progress Note/DC Note Progress Note/Discharge Note: DC Note Patient Information Visit Reasons: fx right tibia Service Continue Service or Discharge: Discharge Discharge Date: 01/08/25 Status Subjective: Pt reports he is doing HEP and the R leg isn't hurting but the calves feel tight with walking >8 mins. He wants to be done with therapy and continue at home. Objective: R ankle AROM: DF: 11 deg PF: 50 deg TTP: none of incision scars Gait: lateral sway to the R pt can correct with cues. He flat foot strikes on L foot Assessment: Pt attended 8/12 Rx sessions with good progress with therapy goals. The distal tibia isn't hurting and he can heel raise x10 and he is independent with HEP. Pt has improved R ankle DF and PF PROM to meet that goal. He has improved ambulatory distance x community with symmetrical pattern if he's thinking about it to limit lateral sway to meet that goal. Plan: D/C with HEP Procedure Charges Therapeutic Exercise 30 minutes: Yes
== END 2025-01-15 23:59 | disposition home or self-care (01) ==
LOC: CPTX 09:30
PROVIDERS: PCP Internal Medicine; Referring Provider Internal Medicine; Visit Provider Internal Medicine
DX: M79.661 Pain in right lower leg (principal); S82.201D Unspecified fracture of shaft of right tibia, subsequent encounter for closed fracture with routine healing; X58.XXXD Exposure to other specified factors, subsequent encounter; I10 Essential (primary) hypertension
CPT/HCPCS: 97110